=== PATIENT | male | born 1940 | race Caucasian/White ===

== ENCOUNTER 2025-10-11 09:23 | Inpatient (IN) | payer MEDICARE, MEDICAID, SELFPAY ==
[2025-10-11] VITALS (10 sets, daily range): BP systolic 103–167; BP diastolic 80–99; PULSE 69–95; RESP 16–26; TEMP 36.4–37.4; O2SAT 1–95; BMI 23.9; BMI 23.8
--- NOTE | ~2025-10-11 | XR_ITS ---
CLINICAL HISTORY: sob 1 view chest x-ray. Comparison: None Findings: Normal lung volumes. Interstitial thickening. No pneumothorax or pleural effusion. Cardiomegaly.Passive venous congestion. No midline shift or tracheal deviation. No acute fracture. Impression: 1. Cardiomegaly with passive venous congestion and interstitial thickening probable interstitial pulmonary edema versus pneumonitis. This document has been electronically signed by: Yosi Samuel MD on 10/11/2025 10:26:04
--- NOTE | ~2025-10-11 | CT_ITS ---
CLINICAL HISTORY: hypoxia CT angiography chest with contrast. 3D Postprocessing. Comparison: None provided Findings: Borderline heart size. Moderate coronary artery calcifications. Reflux of contrast into the hepatic venous system. Unremarkable thoracic aorta and great vessels. No aneurysm. No pulmonary artery filling defects. Unremarkable visualized thyroid gland. No mediastinal lymphadenopathy. Small hiatal hernia. There is moderate pulmonary emphysema. There is no consolidation or pleural effusion. There is colonic diverticulosis. There is pancreatic volume loss. No acute fractures. IMPRESSION: No evidence of pulmonary artery embolism. This document has been electronically signed by: Renetta Carmona MD on 10/11/2025 15:06:25
--- NOTE | ~2025-10-11 | CT_ITS ---
CLINICAL HISTORY: ams CT of the head without intravenous contrast Comparison: None Findings: The ventricles and sulci are prominent, consistent with generalized cerebral parenchymal volume loss. The ventricles are symmetric and the basilar cisterns are intact. Mild periventricular, deep and subcortical white matter hypodensities are nonspecific but statistically reflect the sequela of chronic small vessel ischemic change. No intracranial hemorrhage, extra-axial fluid collection, midline shift or mass-effect is evident. No evidence of acute large vessel or territorial ischemia. Brainstem and cerebellum unremarkable. Vascular calcifications indicate intracranial atherosclerosis. The imaged portion of the paranasal sinuses are clear. No mastoid effusions are demonstrated. The orbital contents are unremarkable. Calvarium is intact. Impression: 1. No CT evidence of acute intracranial abnormality. 2. Cerebral volume loss, intracranial atherosclerotic disease and mild sequela of chronic small vessel ischemic disease. This document has been electronically signed by: Yosi Samuel MD on 10/11/2025 11:50:26
--- NOTE | ~2025-10-11 | CT_ITS ---
EXAMINATION: CT ABDOMEN PELVIS WITHOUT IV CONTRAST HISTORY: fever COMPARISON: There are no prior studies available for comparison. TECHNIQUE: CT scan of the abdomen and pelvis was performed without contrast using standard departmental protocol. Coronal and sagittal reformatted images were generated and reviewed. Oral contrast material was not administered at the request of the referring physician. This CT exam was performed with one or more of the following dose reduction techniques: automated exposure control, adjustment of the mA and/or kV according to patient size, use of iterative reconstruction technique. DLP: 1158 mGy-cm FINDINGS: The examination is limited by patient motion. LOWER CHEST: There is a 5 mm nodule at the right lung base (series 13, image 6). There is no pleural effusion. CARDIOVASCULATURE: The heart is normal in size. There is no pericardial effusion. LIVER: The liver is normal in size and contour. The liver has an unremarkable unenhanced appearance. GALLBLADDER / BILE DUCTS: The gallbladder is distended and demonstrates layering intraluminal calculi. There is no pericholecystic inflammatory change. There is no intra or extrahepatic biliary ductal dilatation. SPLEEN: The spleen is normal in size and has an unremarkable unenhanced appearance. PANCREAS: The pancreas has an unremarkable unenhanced appearance. ADRENAL GLANDS: Unremarkable. KIDNEYS/RETROPERITONEUM: Evaluation for renal calculi is limited by excreted contrast in the collecting systems from prior chest CTA. There is no hydronephrosis. There are cysts in the interpolar region of the right kidney measuring 1.8 cm, at the lower pole the right kidney measuring 1.6 cm, and at the lower pole of the left kidney measuring 3.2 cm. LYMPH NODES: No retroperitoneal lymphadenopathy is identified in the abdomen or pelvis. VASCULATURE: The abdominal aorta demonstrates atherosclerotic calcification, but is normal in caliber. MESENTERY/PERITONEUM: No free fluid. No masses. There is no free intraperitoneal gas. STOMACH: There is a small hiatal hernia. The remainder the stomach is collapsed. SMALL BOWEL: The small bowel is normal in caliber. COLON: There is extensive diverticulosis of the colon, without evidence of diverticulitis. APPENDIX: The appendix is surgically absent. URINARY BLADDER/PELVIC ORGANS: There is excreted contrast in the urinary bladder. BONES / SOFT TISSUES: No suspicious bony or soft tissue abnormalities. CT/CT abdomen pelvis wo IV con IMPRESSION: 1. Cholelithiasis. 2. Colonic diverticulosis without evidence of diverticulitis. 3. 5 mm nodule at the right lung base. Please see Fleischner Society guidelines below. Fleischner Criteria for pulmonary nodule follow-up SOLID NODULES: Low risk patient: <6mm: no follow-up 6-8mm: 6 month follow-up CT >8mm: PET/Biopsy/ 3 month follow-up CT High risk patient: <6mm: 12 month follow-up CT 6-8mm: 6 month follow-up CT >8mm: PET/Biopsy/ 3 month follow-up CT SUB-SOLID/GROUNDGLASS NODULES: All patients: > or = 6mm: 6 month follow-up CT *Please note that in patients in the following categories, the Fleischner criteria do not apply: Immunocompromised, lung cancer screening population, age below 35, and patients with known malignancy Electronically signed by: Kobi Barlow MD 10/12/2025 08:38 AM CAT
--- NOTE | 2025-10-11 09:26 | ECG_ITS ---
Test Reason : SOB Blood Pressure : */* mmHG Vent. Rate : 99 BPM Atrial Rate : * BPM P-R Int : * ms QRS Dur : 90 ms QT Int : 378 ms P-R-T Axes : * 51 64 degrees QTcB Int : 485 ms Atrial fibrillation with premature ventricular or aberrantly conducted complexes Low voltage QRS Nonspecific T wave abnormality Abnormal ECG No previous ECGs available Referred By: Clarisa Cochran Electronically Signed By: BETSY FLANAGAN
--- NOTE | 2025-10-11 09:35 | ED_ITS ---
HPI - General Adult General Chief complaint: Altered Mental Status Stated complaint: AMS, WEAK,90%, RA, FROM [facility] Time Seen by Provider: 10/11/25 09:26 Source: patient Mode of arrival: ambulatory Limitations: no limitations History of Present Illness ED Provider: ISAI Cochran HPI narrative: Chief Complaint: Fatigue with increased weakness and lethargy (per EMS/nursing report). History of Present Illness: 84-year-old male transferred from [facility] for evaluation of acute change in mental status, described by staff as increased weakness and lethargy over today. Baseline per facility and EMS is ambulatory, talkative, and able to participate in care; today, patient is non-verbal, not answering questions, and only responsive to painful stimuli. No recent medication changes reported by staff. No known recent infections, but patient is at increased risk due to advanced age, dementia, and residence in a long term facility. No history of trauma, seizure, or fever reported by staff. No known environmental exposures. Patient has a history of dementia, hypertension, and other chronic conditions. Very limited history obtainable due to patient?s altered mental status. Family and facility contacted for collateral information; awaiting further details. Related Data Allergies Allergy/AdvReac Type Severity Reaction Status Date / Time naproxen (From ALEVE) Allergy Severe ANAPHYLAXIS Unverified 10/11/25 09:44 Review of Systems 2 Review of Systems: A comprehensive review of systems was attempted but is limited by the patient's altered mental status and inability to provide history. Negative findings per staff and chart review: no witnessed seizure, no trauma, no fever, no chest pain, no palpitations, no shortness of breath, no abdominal pain, no vomiting, no diarrhea, no rash, no new psychiatric symptoms. Positive findings: sore throat, generalized weakness, and lethargy. Yes Unobtainable due to mental status PMFSH Past Medical History Attestation statement: The following information was validated with the patient. Source: old records reviewed and nursing notes reviewed Social History Social History Unable to assess alcohol history related to: Unknown Smoked in Last 30 Days: No Use of substances other than those prescribed or required for medical reasons: Unknown Advance Directives: No Advance Directives Information Provided: Yes Physical Exam ED Exam Exam: * General: Elderly male lying in bed, appears comfortable but markedly lethargic. No acute distress. Vitals reviewed. * Neurological: Non-verbal, does not follow commands, withdraws to painful stimuli only; globally weak. No focal deficits appreciated. Pupils equal and reactive. No nuchal rigidity. * Cardiovascular: Regular rate and rhythm, no murmurs, rubs, or gallops. No peripheral edema. * Respiratory: Breath sounds diminished bilaterally, no rales, wheezes, or rhonchi. No increased work of breathing. * Abdomen: Soft, non-tender, non-distended. Bowel sounds present. * Skin: Warm, dry, intact. No rashes, bruising, or pressure ulcers. * Psychiatric: Unable to assess due to altered mental status. No agitation or combativeness observed. Vital Signs: Vital Signs - 24 hr 10/11/25 09:43 10/11/25 10:38 10/11/25 12:00 Temperature 99.3 F 98.6 F Pulse Rate 89 84 69 Respiratory Rate 26 H 22 H 16 Blood Pressure 123/88 103/85 105/80 Pulse Oximetry 91 L 95 95 Oxygen Delivery Method Room Air Nasal Cannula Nasal Cannula Oxygen Flow Rate 2 2 10/11/25 12:35 10/11/25 12:42 Temperature Pulse Rate Respiratory Rate Blood Pressure Pulse Oximetry 75 L 95 Oxygen Delivery Method Room Air Nasal Cannula Oxygen Flow Rate 3 BMI result Body Mass Index 23.9 Course Reevaluation(s) Reevaluation #1: I tried calling the emergency contact in the chart patient's spouse however number not in service. Time: 09:37 Reevaluation #2: CBC with a normocytic anemia. Chemistry pending. Lactic acid 0.8. Patient's x-ray with cardiomegaly with passive venous congestion and interstitial thickening probable interstitial pulmonary edema versus pneumonitis. Patient's blood pressure stable will proceed with 20 mg of IV Lasix. I did order ceftriaxone for empiric coverage. Will hold on fluids given x-ray findings Time: 10:29 Reevaluation #3: With minimal exertion patient desatted is a 75% on room air. He was put back in the room on nasal cannula and his oxygen is anywhere between 93-95% on 3-4 L Time: 14:56 Additional Reevaluation(s): CTA negative. Howver borderline heart size. Plan hospital admission. Medications Administered Discontinued Medications Generic Name Dose Route Start Last Admin Trade Name Freq PRN Reason Stop Dose Admin Furosemide 20 mg 10/11/25 10:29 10/11/25 11:00 Furosemide 20 Mg/2 Ml Vial IVPUSH 10/11/25 10:30 20 mg ONCE ONE Administration Protocol Ceftriaxone Sodium 1 gm/ 50 mls @ 100 mls/hr 10/11/25 10:25 10/11/25 11:16 Sodium Chloride IV 10/11/25 10:54 Infused ONCE ONE Infusion Iohexol 100 ml 10/11/25 13:04 10/11/25 13:05 Iohexol 350 Mg/Ml 100 Ml Infus..Btl IV 10/11/25 13:05 65 ml ONCE ONE Administration Medical Decision Making Medical Decision Making [facility] Narrative: 0941 84-year-old male with dementia presenting from long term facility with acute altered mental status, weakness, and sore throat. Very limited history; exam notable for responsiveness only to painful stimuli. Patient is at high risk for rapid deterioration due to advanced age, comorbidities, and inability to protect airway. Complexity of medical decision making is high given broad differential, need for comprehensive workup, and risk of serious underlying pathology. Full diagnostic workup initiated to evaluate infectious, metabolic, cardiac, neurologic, toxicologic, medication-related, and environmental etiologies of acute encephalopathy. Problem #1: Altered mental status / acute encephalopathy Assessment: Significant deviation from baseline dementia; non-verbal, responds only to pain. Differential diagnosis includes: * Infectious: pneumonia, urinary tract infection, sepsis, viral illness * Metabolic: electrolyte disturbance, renal/hepatic dysfunction, hypoglycemia * Cardiac: arrhythmia, myocardial infarction, heart failure * Neurologic: stroke, intracranial hemorrhage, seizure, acute dementia exacerbation * Toxicologic: medication side effect, overdose, environmental toxin * Other: dehydration, hypoxia, environmental exposures * Patient is at risk for rapid deterioration, aspiration, and falls. Justification for comprehensive workup and close monitoring is based on high risk of morbidity and mortality in this population. Plan: * Obtain CBC, CMP, magnesium, NT-proBNP, troponin (evaluate for infection, metabolic derangement, cardiac injury) * EKG for cardiac evaluation (arrhythmia, ischemia) * Viral respiratory panel (rule out viral infection) * Urinalysis with culture (rule out UTI/sepsis) * Chest X-ray (rule out pneumonia, heart failure) * Non-contrast head CT to rule out intracranial pathology (stroke, hemorrhage) * Monitor vitals and neuro status closely; frequent reassessment * Initiate fall precautions and aspiration precautions * Communicate with facility and family for collateral history and updates * Address abnormalities as results return; escalate care as needed Problem #2: Chronic dementia (baseline) Assessment: Known history per facility; baseline typically ambulatory and talkative. Deviation from baseline noted. Plan: * Document baseline status for comparison * Continue supportive care and monitor for return to baseline Sepsis alert called overhead Differential Diagnosis Differential Diagnoses: The differential diagnosis associated with the presentation includes * Infectious: Pneumonia, urinary tract infection, sepsis, viral illness. Consider aspiration pneumonia due to decreased responsiveness and inability to protect airway. Relevant given advanced age, residence in long term facility, and increased risk of infection. * Metabolic: Electrolyte disturbance, renal or hepatic dysfunction, hypoglycemia, hyperglycemia. Elderly patients with comorbidities and limited history are at increased risk for metabolic derangements. * Cardiac: Arrhythmia, myocardial infarction, heart failure. Cardiac events can present as acute encephalopathy, especially in older adults with underlying cardiovascular disease. * Neurologic: Stroke, intracranial hemorrhage, seizure, acute exacerbation of dementia. Sudden neurologic events are a common cause of acute mental status changes in this population. * Toxicologic: Medication side effect, overdose, environmental toxin. Polypharmacy and potential for medication errors or adverse effects are relevant in nursing facility residents. * Other: Dehydration, hypoxia, environmental exposures, pain, acute delirium from underlying medical illness. These factors can precipitate or worsen encephalopathy, especially in patients with dementia and limited ability to communicate. Admission/Observation Consideration of admission/observation: Escalation of care including admission/observation considered (likely ) Lab Data MDM Lab Attestation statement: I reviewed the patient's lab results. 10/11/25 09:55 10/11/25 09:55 Labs: Lab Results 10/11/25 10/11/25 Range/Units 09:55 10:15 WBC 10.5 (4.8-10.8) X10*3/uL RBC 4.99 (4.60-5.80) X10*6/uL Hgb 12.4 L (14.0-18.0) g/dl Hct 39.9 L (42.0-52.0) % MCV 80.0 (80.0-98.0) fL MCH 24.8 L (27.0-33.0) pg MCHC 31.1 (31.0-36.0) g/dl RDW 15.9 (11.0-16.0) % Plt Count 335 (160-400) X10*3/uL MPV 10.5 (9.4-12.4) fL Immature Gran % (Auto) 0.3 (0.0-0.4) % Neut % (Auto) 76.5 H (45-73) % Lymph % (Auto) 11.6 L (20-40) % [place] % (Auto) 8.1 (2-11) % Eos % (Auto) 2.6 (0-4) % Baso % (Auto) 0.9 (0-2) % Lymph # (Auto) 1.2 (1.2-4.9) X10*3/uL [place] # (Auto) 0.9 (0.1-1.2) X10*3/uL Eos # (Auto) 0.3 (0.0-0.4) X10*3/uL Baso # (Auto) 0.1 (0.0-0.2) X10*3/uL Abs Immat Gran (auto) 0.03 (0.00-0.03) X10*3/uL Absolute Neuts (auto) 8.0 (2.0-8.3) x10*3/uL Absolute Nucleated RBC 0.000 (0.0-0.012) X10*3/uL Nucleated RBC % (auto) 0.0 (0.0-0.2) /100WBC PT 12.8 (11.2-13.5) SEC INR 1.0 (0.9-1.1) Sodium 140 (135-145) mmol/L Potassium 4.3 (3.3-5.1) mmol/L Chloride 109 H (96-108) mmol/L Carbon Dioxide 22 (22-29) mmol/L Anion Gap 13 (12-20) BUN 14 (9-16) mg/dL Creatinine 0.93 (0.5-1.4) mg/dL Estim Creat Clear Calc 61.2 Estimated GFR > 60 Random Glucose 102 (60-115) mg/dL Lactic Acid 0.8 (0.5-2.0) mmol/L Calcium 8.8 (8.4-10.2) mg/dL Magnesium 2.2 (1.6-2.6) mg/dL Total Bilirubin 0.5 (0.0-1.0) mg/dL AST 31 (5-37) U/L ALT < 6 (0-40) U/L Alkaline Phosphatase 90 (39-117) U/L Troponin I High Sens 6.6 (<3.5-35.0) ng/L NT-Pro-B Natriuret Pep 571.1 H (<300) pg/mL Total Protein 7.0 (6.5-8.0) g/dL Albumin 4.3 (3.5-5.0) g/dL Urine Color Yellow Urine Appearance Clear Urine pH 6.5 (5.0-9.0) Ur Specific [place] 1.015 (1.005-1.025) Urine Protein Negative (Neg-Trace) mg/dL Urine Glucose (UA) Negative (Negative) mg/dL Urine Ketones Negative (Negative) mg/dL Urine Blood Negative (Negative) Urine Nitrite Negative (Negative) Ur Leukocyte Esterase Negative (Negative) Influenza Type A (PCR) NEGATIVE (Negative) Influenza Type B (PCR) NEGATIVE (Negative) RSV RNA Qual (PCR) NEGATIVE (Negative) SARS-CoV-2 RNA (RT-PCR) NEGATIVE (Negative) Critical Care Time Critical Care Time Critical Care Time: Yes Total Critical Care Time: 35 Attestation: . I attest to this time spent taking care of the patient, obtaining history, physical, reviewing labs, imaging, treatment of patients condition +/- specialist/hospitalist consult +/- procedure Discharge Plan Discharge Clinical Impression: Altered mental status, Hypoxia Patient Disposition: Admitted As Inpatient Print Language: [place]orese
[2025-10-11 10:02] LABS: MANUAL DIFF FLAG NO
[2025-10-11 10:04] LABS: Hematocrit 39.9 % (42.0-52.0); Hemoglobin 12.4 g/dl (14.0-18.0); Imm Gran Abs Auto 0.03 X10*3/uL (0.00-0.03); Imm Gran Pct Auto 0.3 % (0.0-0.4); Lymphocytes Absolute Auto 1.2 X10*3/uL (1.2-4.9); Mean Corpuscular HGB Conc 31.1 g/dl (31.0-36.0); Mean Corpuscular Hemoglobin 24.8 pg (27.0-33.0); Mean Corpuscular Volume 80.0 fL (80.0-98.0); NRBC Abs Auto 0.000 X10*3/uL (0.0-0.012); NRBC Pct Auto 0.0 /100WBC (0.0-0.2); Platelet Count 335 X10*3/uL (160-400); Red Blood Count 4.99 X10*6/uL (4.60-5.80); White Blood Count 10.5 X10*3/uL (4.8-10.8)
--- NOTE | 2025-10-11 10:04 | PC.NURSE ---
1st set blood cultures sent to lab
[2025-10-11 10:13] LABS: INTERNATIONAL NORM RATIO 1.0 (0.9-1.1); Prothrombin Time 12.8 SEC (11.2-13.5)
--- NOTE | 2025-10-11 10:22 | PC.NURSE ---
Straight cath urine collected using aseptic technique
[2025-10-11 10:28] LABS: Alanine Aminotransferase < 6 U/L (0-40); Albumin Level 4.3 g/dL (3.5-5.0); Alkaline Phosphatase 90 U/L (39-117); Anion Gap 13 (12-20); Aspartate Amino Transferase 31 U/L (5-37); Blood Urea Nitrogen 14 mg/dL (9-16); Calcium 8.8 mg/dL (8.4-10.2); Carbon Dioxide 22 mmol/L (22-29); Chloride 109 mmol/L (96-108); Creatinine Clr Calc Pharmacy 61.2; Estimated Glomerular Filt Rate > 60; Magnesium 2.2 mg/dL (1.6-2.6); Potassium 4.3 mmol/L (3.3-5.1); Sodium 140 mmol/L (135-145); Total Protein 7.0 g/dL (6.5-8.0)
[2025-10-11 10:29] LABS: NT Pro B Type Natriuretic Pept 571.1 pg/mL (<300); Troponin-I High Sensitivity 6.6 ng/L (<3.5-35.0)
[2025-10-11 10:31] LABS: Appearance Urine Clear; Glucose Urine UA Negative (Negative); PH 6.5 (5.0-9.0); Specific Gravity - Urine 1.015 (1.005-1.025)
--- OUTSIDE RECORDS SUMMARY | 2025-10-11 10:54 | XMS_ITS | Encounter Summary ---
Author Organization [facility] Address [address] [place] [address] Phone Care Team Providers Care Ammonia Refrigeration Technician Name Role Phone Pool Perez STUDENT ASSISTANT Primary Care Provider [phone] Encounter Details Date Type Department Care Team (Late st Contact Info) Description 06/03/2022 Procedure Pass [facility], Ct Scan [address] [address] Social History Tobacco Use Types Packs/Day Years Used Date Smoking Tobacco: Former Cigarettes Q uit: 2002 Smokeless Tobacco: Never Alcohol Use Standard Drinks/Week Comments No 0 (1 standard drink = 0.6 oz pur e alcohol) Sex and Gender Information Value Date Recorded Sex Assigned at Male 12/22/2017 1:30 PM EST Legal Sex Male 10:11 PM EDT Gender Identity Male 12/22/2017 1:30 PM EST Sexual Orientation Straight 12/22/2017 1: 30 PM EST 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 It is not the complete legal health record.[facility]
--- OUTSIDE RECORDS SUMMARY | 2025-10-11 10:54 | XMS_ITS | Encounter Summary ---
Author Organization [facility] Address [address] [place] [address] Phone Care Team Providers Care Trimmer Press Clippings Name Role Phone Pool Perez WATCH DIAL PRINTER Primary Care Provider [phone] Encounter Details Date Type Department Care Team (Late st Contact Info) Description 06/30/2020 Procedure Pass [facility] Admitting Dept Virtual Department [address] [place] [address] Social History Tobacco Use Types Packs/Day Years [...] Orientation Straight 12/22/2017 1: 30 PM EST documented as of this encounter Plan of Treatment Not on file documented as of this encounter Visit Diagnoses Not on filedocumented in this encounter Care Teams Trimmer Press Clippings Relationship Specialty Start Date End Date Pool Perez NP [address] [place] [address] PCP - General 04/06/20 documented as of this encounter Additional Source Comments The information contained in this document represents components of the legal health record. It is not the complete legal health record.[facility]
--- OUTSIDE RECORDS SUMMARY | 2025-10-11 10:54 | XMS_ITS | Encounter Summary ---
Author Organization [facility] Address [address] [place] [address] Phone Care Team Providers Care Stem Dryer Maintainer Name Role Phone Luke Gaitan Primary Care Provider [phone] Daija Banegas MD Primary Care Provider [phone] Pool Perez NP Primary Care Provider [phone] Encounter Details Date Type Department Care Team (Late st Contact Info) Description 05/25/2018 Procedure Pass [facility]oscopy Admitting Dept Virtual Department [address] [place] [address] Social History Tobacco Use Types Packs/Day Years [...] Diagnoses Not on filedocumented in this encounter Additional Health Concerns Infection Onset Date Last Indicated Resolved Time CoV-Risk 04/10/2020 04/10/2020 04/24/2020 1:24 AM EDT documented as of this encounter Care Teams Stem Dryer Maintainer Relationship Specialty Start Date End Date Luke Gaitan [facility] [place] [address] PCP - General 02/09/18 03/14/19 Daija Banegas MD [address] [place] [address] [email or web address] PCP - General Family Medicine 03/15/19 09/24/19 Pool Perez NP [address] [place] [address] PCP - General 04/06/20 documented as of this encounter Additional Source Comments The information contained in this document represents components of the legal health record. It is not the complete legal health record.[facility]
--- OUTSIDE RECORDS SUMMARY | 2025-10-11 10:54 | XMS_ITS | Encounter Summary ---
Author Organization [facility] Address [address] [place] [address] Care Team Providers Care Clearing Distribution Clerk Name Role Phone Aristeo Rolle MD Primary Care Provider [phone] Encounter Details Date Type Department Care Team (Latest Contact Info) Description 01/07/2025 Lab Requisition [facility] - Main Lab [address] [place] [address] Aristeo Rolle MD [address] [place], [place] [id number] Noninfective gastroenteritis and colitis, unspecified; Elevated white blood cell count, unspecified Social History Tobacco Use Types Packs/Day Years Used Date Smoking Tobacco: Never Assessed Sex and Gender Information Value Date Recorded Sex Assigned at Not on file Legal Sex Male 6:23 AM EST Gender Identity Not on file Sexual Orientation Not on file documented as of this encounter Plan of Treatment Not on file documented as of this encounter Procedures Procedure Name Priority Date/Time Associated Diagnosis Comments COMPLETE BLOOD COUNT Routine 01/07/2025 5:50 AM EDT Noninfective gastroenteritis and colitis, unspecified Elevated white blood cell count, unspecified BASIC METABOLIC PANEL Routine 01/07/2025 5:50 AM EDT Noninfective gastroenteritis and colitis, unspecified Elevated white blood cell count, unspecified documented in this encounter Results * Basic metabolic panel (01/07/2025 5:50 AM EDT) Sodium 139 133 - 145 mmol/L LAB CHEMISTRY METHOD 01/07/2025 10:34 AM EDT [facility] Potassium 4.1 3.5 - 5.5 mmol/L LAB CHEMISTRY METHOD 01/07/2025 10:34 AM [facility] Chloride 107 96 - 110 mmol/L LAB CHEMISTRY METHOD 01/07/2025 10:34 AM [facility] CO2 25 21 - 32 mmol/L LAB CHEMISTRY METHOD 01/07/2025 10:34 AM [facility] Anion Gap 7 3 - 11 LAB CHEMISTRY METHOD 01/07/2025 10:34 AM [facility] Glucose 92 70 - 100 mg/dL LAB CHEMISTRY METHOD 01/07/2025 10:34 AM [facility] BUN 17 5 - 25 mg/dL LAB CHEMISTRY METHOD 01/07/2025 10:34 AM [facility] Creatinine 0.89 0.70 - 1.30 mg/dL LAB CHEMISTRY METHOD 01/07/2025 10:34 AM [facility] eGFR 86 >=60 mL/min/1. 73m2 LAB CHEMISTRY METHOD 01/07/2025 10:34 AM [facility] Comment:Calculation based on the Chronic Kidney Disease Epidemiology Collaboration (CKD-EPI) equation refit without adjustment for race. BUN/Creatinine Ratio 19.1 LAB CHEMISTRY METHOD 01/07/2025 10:34 AM [facility] Calcium 8.8 8.5 - 10.5 mg/dL LAB CHEMISTRY METHOD 01/07/2025 10:34 AM [facility] Blood Venous blood specimen / Unknown Venipuncture / Unknown 01/07/2025 5:50 AM EDT 01/07/2025 9:12 AM EDT us Aristeo Rolle MD LAB BLOOD ORDERABLES Final Resul t [facility] [address] [place] [address], * (ABNORMAL) Complete blood count (01/07/2025 5:50 AM EDT) [facility] WBC 8.5 4.8 - 10.8 K/mcL LAB HEMETOLOGY METHOD 01/07/2025 10:27 AM [facility] RBC 5.70(H) 4.50 - 5.50 M/mcL LAB HEMETOLOGY METHOD 01/07/2025 10:27 AM [facility] Hemoglobin 13.6 13.5 - 17.5 g/dL LAB HEMETOLOGY METHOD 01/07/2025 10:27 AM [facility] Hematocrit 44.8 42.0 - 54.0 % LAB HEMETOLOGY METHOD 01/07/2025 10:27 AM [facility] MCV 79.2 79.0 - 98.0 FL LAB HEMETOLOGY METHOD 01/07/2025 10:27 AM [facility] MCH 24.0(L) 27.0 - 32.0 pcg LAB HEMETOLOGY METHOD 01/07/2025 10:27 AM [facility] MCHC 30.4(L) 32.0 - 37.0 g/dL LAB HEMETOLOGY METHOD 01/07/2025 10:27 AM [facility] RDW 18.6(H) 11.0 - 15.0 % LAB HEMETOLOGY METHOD 01/07/2025 10:27 AM [facility] Platelets 300 130 - 400 K/mcL LAB HEMETOLOGY METHOD 01/07/2025 10:27 AM [facility] MPV 11.7(H) 7.0 - 11.0 FL LAB HEMETOLOGY METHOD 01/07/2025 10:27 AM [facility] NRBC 0.0 <1.0 % LAB HEMETOLOGY METHOD 01/07/2025 10:27 AM [facility] NRBC Absolute 0.00 <0.10 K/mcL LAB HEMETOLOGY METHOD 01/07/2025 10:27 AM EDT [facility] Blood Venous blood specimen / Unknown Venipuncture / Unknown 01/07/2025 5:50 AM EDT 01/07/2025 9:12 AM EDT Aristeo Rolle MD LAB BLOOD ORDERABLES Final Resul t [facility] [address] [place] [address], documented in this encounter Visit Diagnoses Diagnosis Noninfective gastroenteritis and colitis, unspecified Elevated white blood cell count, unspecified documented in this encounter Care Teams Clearing Distribution Clerk Relationship Specialty Start Date End Date Aristeo Rolle MD [address] [place] [address] [address] [place] [address] PCP - General Geriatric Medicine 11/11/24 documented as of this encounter
--- OUTSIDE RECORDS SUMMARY | 2025-10-11 10:54 | XMS_ITS | Encounter Summary ---
Author Organization [facility] Address [address] [place] [address] Phone Care Team Providers Care Electronic News Gathering Camera Person Name Role Phone Luke Gaitan Primary Care Provider [phone] Daija Banegas MD Primary Care Provider [phone] Pool Perez NP Primary Care Provider [phone] Encounter Details Date Type Department Care Team (Late st Contact Info) Description 08/07/2018 Procedure Pass [facility], Ct Scan - [address] [address] Social History Tobacco Use Types Packs/Day Years [...] documented as of this encounter Care Teams Electronic News Gathering Camera Person Relationship Specialty Start Date End Date Luke Gaitan [address] [facility] [place] [address] PCP - General 02/09/18 03/14/19 Daija Banegas MD [address] [place] [address] [email or web address] PCP - General Family Medicine 03/15/19 09/24/19 Pool Perez NP [address] [place] [address] PCP - General 04/06/20 documented as of this encounter Additional Source Comments The information contained in this document represents components of the legal health record. It is not the complete legal health record.[facility]
--- OUTSIDE RECORDS SUMMARY | 2025-10-11 10:54 | XMS_ITS | Encounter Summary ---
Author Organization [facility] Address [address] [place] [address] Phone Care Team Providers Care Spring Setter Name Role Phone Pool Perez FUELS ENGINEER Primary Care Provider [phone] Encounter Details Date Type Department Care Team (Late st Contact Info) Description 10/21/2020 Procedure Pass [facility], Ct Scan - [address] [address] Social History Tobacco Use Types Packs/Day Years [...] on filedocumented in this encounter Care Teams Spring Setter Relationship Specialty Start Date End Date Pool Perez NP [address] [place] [address] PCP - General 04/06/20 documented as of this encounter Additional Source Comments The information contained in this document represents components of the legal health record. It is not the complete legal health record.[facility]
--- OUTSIDE RECORDS SUMMARY | 2025-10-11 10:54 | XMS_ITS | Encounter Summary ---
Author Organization [facility] Address [address] [place] [address] Care Team Providers Care Payment Analyst Name Role Phone Aristeo Rolle MD Primary Care Provider [phone] Encounter Details Date Type Department Care Team (Latest Contact Info) Description 11/29/2024 Lab Requisition [facility] - Main Lab [address] [facility] [place] [address] Shai Tan MD [address] [place] [id number] Hyperlipidemia, unspecified; Vascular dementia, unspecified severity, without behavioral disturbance, psychotic disturbance, mood disturbance, and anxiety (CMS/HCC V24, CMS/HCC V28); Type 2 diabetes mellitus without complications (CMS/HCC V24, CMS/HCC V28) Social History Tobacco Use Types Packs/Day Years [...] Procedure Name Priority Date/Time Associated Diagnosis Comments LIPID PANEL WITH REFLEX TO DIRECT LDL Routine 12/01/2024 6:40 AM EST Hyperlipidemia, unspecified Vascular dementia, unspecified severity, without behavioral disturbance, psychotic disturbance, mood disturbance, and anxiety (CMS/HCC) Type 2 diabetes mellitus without complications (CMS/HCC) COMPLETE BLOOD COUNT Routine 12/01/2024 6:40 AM EST Hyperlipidemia, unspecified Vascular dementia, unspecified severity, without behavioral disturbance, psychotic disturbance, mood disturbance, and anxiety (CMS/HCC) Type 2 diabetes mellitus without complications (CMS/HCC) THYROID STIMULATING HORMONE Routine 12/01/2024 6:40 AM EST Hyperlipidemia, unspecified Vascular dementia, unspecified severity, without behavioral disturbance, psychotic disturbance, mood disturbance, and anxiety (CMS/HCC) Type 2 diabetes mellitus without complications (CMS/HCC) HEMOGLOBIN A1C Routine 12/01/2024 6:40 AM EST Hyperlipidemia, unspecified Vascular dementia, unspecified severity, without behavioral disturbance, psychotic disturbance, mood disturbance, and anxiety (CMS/HCC) Type 2 diabetes mellitus without complications (CMS/HCC) COMPREHENSIVE METABOLIC PANEL Routine 12/01/2024 6:40 AM EST Hyperlipidemia, unspecified Vascular dementia, unspecified severity, without behavioral disturbance, psychotic disturbance, mood disturbance, and anxiety (CMS/HCC) Type 2 diabetes mellitus without complications (CMS/HCC) documented in this encounter Results * Hemoglobin A1c (12/01/2024 6:40 AM EST) Hemoglobin A1C 6.4 <6.5 % LAB CHEMISTRY METHOD 12/01/2024 2:28 PM EST [facility] Mean Bld Glu Estim. 137 mg/dL LAB CHEMISTRY METHOD 12/01/2024 2:28 PM EST [facility] Blood Venous blood specimen / Unknown Venipuncture / Unknown 12/01/2024 6:40 AM EST 12/01/2024 10:52 AM EST us Shai Tan MD LAB BLOOD ORDERABLES Final Res ult [facility] [address] [place] [address], * Thyroid stimulating hormone (12/01/2024 6:40 AM EST) TSH 3.98 0.40 - 4.00 mcIU/mL LAB CHEMISTRY METHOD 12/01/2024 11:57 AM EST [facility] Blood Venous blood specimen / Unknown Venipuncture / Unknown 12/01/2024 6:40 AM EST 12/01/2024 10:52 AM EST us Shai Tan MD LAB BLOOD ORDERABLES Final Res ult [facility] [address] [place] [address], [place] [phone] * (ABNORMAL) Lipid panel with reflex to direct LDL (12/01/2024 6:40 AM EST) Cholesterol 108 0 - 200 mg/dL LAB CHEMISTRY METHOD 12/01/2024 11:50 AM EST [facility] Triglycerides 68 0 - 150 mg/dL LAB CHEMISTRY METHOD 12/01/2024 11:50 AM [facility] HDL 34(L) >=40 mg/dL LAB CHEMISTRY METHOD 12/01/2024 11:50 AM EST [facility] LDL Calculated 60 0 - 100 mg/dL LAB CHEMISTRY METHOD 12/01/2024 11:50 AM EST [facility] VLDL Cholesterol Mukund 13.6 mg/dL LAB CHEMISTRY METHOD 12/01/2024 11:50 AM EST [facility] Non HDL Chol. (LDL+VLDL) 74 <145 mg/dL LAB CHEMISTRY METHOD 12/01/2024 11:50 AM [facility] Chol/HDL Ratio 3.2 0.0 - 4.4 LAB CHEMISTRY METHOD 12/01/2024 11:50 AM [facility] Blood Venous blood specimen / Unknown Venipuncture / Unknown 12/01/2024 6:40 AM EST 12/01/2024 10:52 AM EST us Shai Tan MD LAB BLOOD ORDERABLES Final Res ult [facility] [address] [place] [address], [place] [phone] * (ABNORMAL) Comprehensive metabolic panel (12/01/2024 6:40 AM EST) [facility] Signature Sodium 138 133 - 145 mmol/L LAB CHEMISTRY METHOD 12/01/2024 11:50 AM [facility] Potassium 3.6 3.5 - 5.5 mmol/L LAB CHEMISTRY METHOD 12/01/2024 11:50 AM [facility] Chloride 106 96 - 110 mmol/L LAB CHEMISTRY METHOD 12/01/2024 11:50 AM [facility] CO2 26 21 - 32 mmol/L LAB CHEMISTRY METHOD 12/01/2024 11:50 AM [facility] Anion Gap 6 3 - 11 LAB CHEMISTRY METHOD 12/01/2024 11:50 AM [facility] Glucose 86 70 - 100 mg/dL LAB CHEMISTRY METHOD 12/01/2024 11:50 AM [facility] BUN 16 5 - 25 mg/dL LAB CHEMISTRY METHOD 12/01/2024 11:50 AM [facility] Creatinine 1.02 0.70 - 1.30 mg/dL LAB CHEMISTRY METHOD 12/01/2024 11:50 AM [facility] eGFR 74 >=60 mL/min/1. 73m2 LAB CHEMISTRY METHOD 12/01/2024 11:50 AM [facility] Comment:Calculation based on the Chronic Kidney Disease Epidemiology Collaboration (CKD-EPI) equation refit without adjustment for race. BUN/Creatinine Ratio 15.7 LAB CHEMISTRY METHOD 12/01/2024 11:50 AM [facility] Calcium 8.6 8.5 - 10.5 mg/dL LAB CHEMISTRY METHOD 12/01/2024 11:50 AM [facility] AST (SGOT) 7(L) 10 - 42 unit/L LAB CHEMISTRY METHOD 12/01/2024 11:50 AM [facility] ALT (SGPT) 8(L) 10 - 60 unit/L LAB CHEMISTRY METHOD 12/01/2024 11:50 AM [facility] Alkaline Phosphatase 90 42 - 121 unit/L LAB CHEMISTRY METHOD 12/01/2024 11:50 AM [facility] Total Protein 6.5 6.0 - 8.0 g/dL LAB CHEMISTRY METHOD 12/01/2024 11:50 AM EST [facility] Albumin 3.5 3.2 - 5.0 g/dL LAB CHEMISTRY METHOD 12/01/2024 11:50 AM [facility] Total Bilirubin 0.7 0.0 - 1.4 mg/dL LAB CHEMISTRY METHOD 12/01/2024 11:50 AM [facility] Blood Venous blood specimen / Unknown Venipuncture / Unknown 12/01/2024 6:40 AM EST 12/01/2024 10:52 AM EST us Shai Tan MD LAB BLOOD ORDERABLES Final Res ult [facility] [address] [place] [address], * (ABNORMAL) Complete blood count (12/01/2024 6:40 AM EST) WBC 14.4(H) 4.8 - 10.8 K/mcL LAB HEMETOLOGY METHOD 12/01/2024 11:15 AM [facility] RBC 5.20 4.50 - 5.50 M/[facility] LAB HEMETOLOGY METHOD 12/01/2024 11:15 AM [facility] Hemoglobin 12.6(L) 13.5 - 17.5 g/dL LAB HEMETOLOGY METHOD 12/01/2024 11:15 AM [facility] Hematocrit 41.2(L) 42.0 - 54.0 % LAB HEMETOLOGY METHOD 12/01/2024 11:15 AM [facility] MCV 79.1 79.0 - 98.0 FL LAB HEMETOLOGY METHOD 12/01/2024 11:15 AM EST [facility] MCH 24.2(L) 27.0 - 32.0 pcg LAB HEMETOLOGY METHOD 12/01/2024 11:15 AM [facility] MCHC 30.6(L) 32.0 - 37.0 g/dL LAB HEMETOLOGY METHOD 12/01/2024 11:15 AM EST [facility] RDW 18.6(H) 11.0 - 15.0 % LAB HEMETOLOGY METHOD 12/01/2024 11:15 AM EST [facility] Platelets 305 130 - 400 K/mcL LAB HEMETOLOGY METHOD 12/01/2024 11:15 AM [facility] MPV 12.2(H) 7.0 - 11.0 FL LAB HEMETOLOGY METHOD 12/01/2024 11:15 AM EST [facility] NRBC 0.0 <1.0 % LAB HEMETOLOGY METHOD 12/01/2024 11:15 AM EST [facility] NRBC Absolute 0.00 <0.10 K/mcL LAB HEMETOLOGY METHOD 12/01/2024 11:15 AM [facility] Blood Venous blood specimen / Unknown Venipuncture / Unknown 12/01/2024 6:40 AM EST 12/01/2024 10:52 AM EST us Shai Tan MD LAB BLOOD ORDERABLES Final Res ult [facility] [address] [place] [address], documented in this encounter Visit Diagnoses Diagnosis Hyperlipidemia, unspecified Vascular dementia, unspecified severity, without behavioral disturbance, psychotic disturbance, mood disturbance, and anxiety (CMS/HCC V24, CMS/HCC V28) Type 2 diabetes mellitus without complications ([facility]/HCC V24, [facility] V28) documented in this encounter Additional Health Concerns Infection Onset Date Last Indicated Resolved Time Influenza 11/10/2024 11/10/2024 12/04/2024 7:07 PM EST documented as of this encounter Care Teams Payment Analyst Relationship Specialty Start Date End Date Aristeo Rolle MD [address] [facility] [address] [place] [address] PCP - General Geriatric Medicine 11/11/24 documented as of this encounter
--- OUTSIDE RECORDS SUMMARY | 2025-10-11 10:54 | XMS_ITS | Encounter Summary ---
Author Organization [facility] Address [address] [place] [address] Care Team Providers Care Operating Systems Specialist Name Role Phone Aristeo Rolle MD Primary Care Provider [phone] Encounter Details Date Type Department Care Team (Late st Contact Info) Description 11/11/2024 Lab Requisition [facility] - Main Lab [address] [facility] [place] [address] Aristeo Rolle MD [address] [place], [place] [id number] Unspecified atrial fibrillation (CMS/HCC V24, CMS/HCC V28) Social History Tobacco [...] Procedure Name Priority Date/Time Associated Diagnosis Comments CBC WITH AUTO DIFFERENTIAL Routine 11/11/2024 6:00 AM EST Unspecified atrial fibrillation (CMS/HCC) CBC AND DIFFERENTIAL Routine 11/11/2024 6:00 AM EST Unspecified atrial fibrillation (CMS/HCC) BASIC METABOLIC PANEL Routine 11/11/2024 6:00 AM EST Unspecified atrial fibrillation (CMS/HCC) documented in this encounter Results * (ABNORMAL) CBC auto differential (11/11/2024 6:00 AM EST) WBC 7.9 4.8 - 10.8 /[facility] LAB HEMETOLOGY METHOD 11/11/2024 9:13 AM [facility] RBC 5.60(H) 4.50 - 5.50 M/mcL LAB HEMETOLOGY METHOD 11/11/2024 9:13 AM [facility] Hemoglobin 13.1(L) 13.5 - 17.5 g/dL LAB HEMETOLOGY METHOD 11/11/2024 9:13 AM [facility] LAB Hematocrit 42.9 42.0 - 54.0 % LAB HEMETOLOGY METHOD 11/11/2024 9:13 AM [facility] LAB MCV 76.9(L) 79.0 - 98.0 FL LAB HEMETOLOGY METHOD 11/11/2024 9:13 AM [facility] MCH 23.5(L) 27.0 - 32.0 pcg LAB HEMETOLOGY METHOD 11/11/2024 9:13 AM [facility] LAB MCHC 30.5(L) 32.0 - 37.0 g/dL LAB HEMETOLOGY METHOD 11/11/2024 9:13 AM [facility] LAB RDW 17.2(H) 11.0 - 15.0 % LAB HEMETOLOGY METHOD 11/11/2024 9:13 AM [facility] LAB Platelets 357 130 - 400 K/mcL LAB HEMETOLOGY METHOD 11/11/2024 9:13 AM [facility] LAB MPV 11.0 7.0 - 11.0 FL LAB HEMETOLOGY METHOD 11/11/2024 9:13 AM [facility] LAB NRBC 0.0 <1.0 % LAB HEMETOLOGY METHOD 11/11/2024 9:13 AM [facility] LAB NRBC Absolute 0.00 <0.10 K/mcL LAB HEMETOLOGY METHOD 11/11/2024 9:13 AM [facility] Neutrophils Relative 66.7 % LAB HEMETOLOGY METHOD 11/11/2024 9:13 AM [facility] Lymphocytes Relative 15.5 % LAB HEMETOLOGY METHOD 11/11/2024 9:13 AM [facility] Monocytes Relative 13.0 % LAB HEMETOLOGY METHOD 11/11/2024 9:13 AM [facility] Eosinophils Relative 3.8 % LAB HEMETOLOGY METHOD 11/11/2024 9:13 AM [facility] Basophils Relative 0.5 % LAB HEMETOLOGY METHOD 11/11/2024 9:13 AM [facility] Immature Granulocytes Relative 0.5 % LAB HEMETOLOGY METHOD 11/11/2024 9:13 AM [facility] Neutrophils Absolute 5.27 1.50 - 7.00 K/mcL LAB HEMETOLOGY METHOD 11/11/2024 9:13 AM [facility] Lymphocytes Absolute 1.23 1.00 - 5.00 K/mcL LAB HEMETOLOGY METHOD 11/11/2024 9:13 AM [facility] Monocytes Absolute 1.03(H) 0.20 - 1.00 K/mcL LAB HEMETOLOGY METHOD 11/11/2024 9:13 AM [facility] Eosinophils Absolute 0.30 0.00 - 0.50 K/mcL LAB HEMETOLOGY METHOD 11/11/2024 9:13 AM [facility] Basophils Absolute 0.04 0.00 - 0.20 K/mcL LAB HEMETOLOGY METHOD 11/11/2024 9:13 AM [facility] Immature Granulocytes Absolute 0.04(H) 0.00 - 0.03 K/mcL LAB HEMETOLOGY METHOD 11/11/2024 9:13 AM [facility] Blood Venous blood specimen / Unknown Venipuncture / Unknown 11/11/2024 6:00 AM EST 11/11/2024 8:48 AM EST us Aristeo Rolle MD LAB BLOOD ORDERABLES Final Resul t [facility] [address] [place] [address], * Basic metabolic panel (11/11/2024 6:00 AM EST) Sodium 141 133 - 145 mmol/L LAB CHEMISTRY METHOD 11/11/2024 10:13 AM [facility] Potassium 5.2 3.5 - 5.5 mmol/L LAB CHEMISTRY METHOD 11/11/2024 10:13 AM [facility] Chloride 107 96 - 110 mmol/L LAB CHEMISTRY METHOD 11/11/2024 10:13 AM [facility] CO2 30 21 - 32 mmol/L LAB CHEMISTRY METHOD 11/11/2024 10:13 AM [facility] Anion Gap 4 3 - 11 LAB CHEMISTRY METHOD 11/11/2024 10:13 AM [facility] Glucose 93 70 - 100 mg/dL LAB CHEMISTRY METHOD 11/11/2024 10:13 AM [facility] BUN 14 5 - 25 mg/dL LAB CHEMISTRY METHOD 11/11/2024 10:13 AM [facility] Creatinine 1.08 0.70 - 1.30 mg/dL LAB CHEMISTRY METHOD 11/11/2024 10:13 AM [facility] LAB eGFR 69 >=60 mL/min/1. 73m2 LAB CHEMISTRY METHOD 11/11/2024 10:13 AM [facility] LAB Comment:Calculation based on the Chronic Kidney Disease Epidemiology Collaboration (CKD-EPI) equation refit without adjustment for race. BUN/Creatinine Ratio 13.0 LAB CHEMISTRY METHOD 11/11/2024 10:13 AM [facility] Calcium 8.9 8.5 - 10.5 mg/dL LAB CHEMISTRY METHOD 11/11/2024 10:13 AM EST [facility] Blood Venous blood specimen / Unknown Venipuncture / Unknown 11/11/2024 6:00 AM EST 11/11/2024 8:48 AM EST Aristeo Rolle MD LAB BLOOD ORDERABLES Final Resul t [facility] [address] [place] [address], documented in this encounter Visit Diagnoses Diagnosis Unspecified atrial fibrillation (CMS/HCC V24, CMS/HCC V28) documented in this encounter Additional Health Concerns Infection Onset Date Last Indicated Resolved Time Influenza 11/10/2024 11/10/2024 12/04/2024 7:07 PM EST Respiratory Rule-Out 11/11/2024 11/10/2024 025 12:35 PM EST documented as of this encounter Care Teams Operating Systems Specialist Relationship Specialty Start Date End Date Aristeo Rolle MD [address] [place] [address] [address] [place] [address] PCP - General Geriatric Medicine 11/11/24 documented as of this encounter
--- OUTSIDE RECORDS SUMMARY | 2025-10-11 10:54 | XMS_ITS | Clinical Summary ---
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 Acti ve galantamine (RAZADYNE) 12 MG tablet Take 12 mg by mouth 2 (two) times a day. Active memantine (NAMENDA) 10 MG tablet Take 10 mg by mouth 2 (two) times a day. Active lurasidone (LATUDA) 40 mg Tab 40 mg nightly at bedtime. Active simvastatin (ZOCOR) 40 MG tablet Take 20 mg by mouth nightly. Active carbidopa-levod opa (SINEMET CR) 25-100 mg per CR tablet Take 1 tablet by mouth 3 (three) times a day. Active rasagiline (AZILECT) 0.5 mg tablet Take 0.5 mg by mouth daily. Active pantoprazole (PROTONIX) 20 MG tablet Take 20 mg by mouth 2 (two) times a day. Active acetaminophen (TYLENOL) 500 MG tablet Take 500 mg by mouth every 6 (six) hours as needed for pain (specific location in comments). Active aspirin 81 mg chewable tablet Take 81 mg by mouth daily. Active oxybutynin (DITROPAN) 5 MG tablet Take 5 mg by mouth nightly at bedtime. Active citalopram (CELEXA) 10 MG tablet Take 3 tablets (30 mg total) by mouth nightly at bedtime. 2 Active lidocaine 4 % Place 1 patch onto the skin daily. 2 Active traMADoL (ULTRAM) 50 mg tablet Take 0.5 tablets (25 mg total) by mouth every 6 (six) hours as needed for severe pain (not responsive to tylenol/lidocai ne). 15 tablet 2 Active Active Problems Problem Noted Date Diagnosed Date Fracture of greater trochanter of left femur Abnormal EKG 06/04/2022 Assessment & Plan (06/04/2022 12:17 PM EDT): Old EKG from 10/21/2020 shows ? atrial fibrillation. Discussed with and no dx of A.Fib.Seen by Cardio at [facility] evaluated and no dx of A.fib. -No indication for rate controlling medications or OAC. - We will monitor on telemetry Hypokalemia 06/04/2022 Assessment & Plan (06/04/2022 12:20 PM EDT): Mild hyperkalemia today with potassium 3.2. - Replace with oral potassium 40 M EQ. - Repeat BMP in a.m. TIA (transient ischemic attack) 06/03/2022 Overview (06/03/2022): x3 Assessment & Plan (06/04/2022 11:59 AM EDT): History of prior TIAs, continued on aspirin and statin. No focal deficits at this time. -Outpatient follow-up with primary neurologist after discharge. Depression with anxiety 06/03/2022 Assessment & Plan (06/03/2022 2:56 PM EDT): Home medical regimen continued with citalopram, galantamine, lurasidone. Muscle spasm 06/03/2022 Overview (06/03/2022): recurrent, neurologist feels related to Parkinson's Disease Assessment & Plan (06/04/2022 12:05 PM EDT): No muscle spasms today. -Symptoms has been previously discussed with his neurologist who felt that the muscle spasms were transient and in response to physiologic stress. Symptoms on presentation were likely related to his hip fracture and associated pain. -Home Parkinson's medical regimen continued. Hip fracture, left, closed, initial encounter Assessment & Plan (06/04/2022 11:56 AM EDT): Patient presented with hip pain and confusion following a fall. Infectious work-up negative. Cardiac work-up- EKG narrow complex regular 75 appears to be sinus with trauma from Parkinson's. Old EKG with A. fib in October 2020. -Seen by orthopedic surgery nonoperative fracture. Recommends WBAT with PT/OT. -pain management with scheduled Tylenol and a lidocaine patch, tramadol available for breakthrough pain. -Zofran available as needed for nausea. -PT/OT evaluations with left hip trochanteric precautions. -Case management for discharge planning - monitor for fevers or signs of infection. -Monitor on telemetry overnight. Outpatient plan - Follow-up Ortho clinic in [place] without appointment in 2 weeks. Lower GI bleed 10/21/2020 Assessment & Plan (10/22/2020 12:23 PM EST): Painless rectal bleeding episode. Appears self-limited as he has had no recurrence. H/H stable. CTA showed no active bleeding. He had recent EGD and colonoscopy in June. He has known diverticular disease which would be the most likely culprit --GI has been consulted. Assuming continued improvement, may able to consider advancing diet and holding off on additional diagnostics. Will await further input Bradycardia 10/21/2020 Assessment & Plan (10/22/2020 12:20 PM EST): He has had mild bradycardia with heart rate in the 50s. EKG suggests atrial fibrillation with slow ventricular response but there is some artifact and P waves may be difficult to discern. No previous history of atrial fibrillation. He is not on any AV sherri blockers --Await formal read of EKG H/O: duodenal ulcer 05/26/2018 Vascular dementia 05/24/2018 Assessment & Plan (06/04/2022 12:03 PM EDT): Stable cooperative alert and oriented x3. Some forgetfulness. Poor historian. Assessment & Plan (10/22/2020 12:29 PM EST): No acute issues --Continue usual medications including memantine, lurasidone, galantamine Assessment & Plan (07/02/2020 12:30 PM EDT): Continue home medical regimen with galantamine, lurasidone, memantine, simvastatin. Assessment & Plan (05/24/2018 9:04 PM EDT): Presently cooperative and responding appropriate to questions --Continue usual home medications including galantamine, mematine, lurasidone, celexa Bipolar disorder Assessment & Plan (10/21/2020 11:35 PM EST): Stable. We will continue with home medications. Parkinson's disease Assessment & Plan (06/04/2022 11:58 AM EDT): Patient with known vascular dementia and Parkinson's disease. Followed by neurology. Typically independent with his activities of daily living, ambulates with a Rollator walker outside the house. Patient alert and oriented x3. Able to recall that he was walking in his house without his walker when he fell. Reports [id number] carpets in his home. -Participating in PT OT. Assessment & Plan (10/22/2020 12:25 PM EST): No acute issues --Continue usual regimen of Sinemet, rasagiline Resolved Problems Problem Noted Date Diagnosed Date Resolved Date GI bleed 05/24/2018 10/21/2020 Assessment & Plan (07/02/2020 12:28 PM EDT): He was able to be taken directly from the emergency department for upper endoscopy 06/29 Impression: Abnormal esophageal motility, suspicious for presbyesophagus - A medium amount of food (residue) in the stomach.- Normal examined duodenum. - No specimens collected. Colonoscopy showed only fair prep and stool throughout the colon. No acute findings, presumed secondary to diverticular bleed. Appeared to have resolved overnight and no further bleeding however this morning had a blood-streaked stool and then another burgundy stool with more pronounced blood in it. Hemoglobin remained stable I had expected to discharge the patient home yesterday but he had 2 large burgundy stools. Despite this his hemoglobin has remained fairly stable, at 6 AM yesterday hemoglobin was 12. 3 then at noon 11.9 and then last night 10.9, back up this morning to 11.1 No further bleeding since yesterday morning Appreciate GI consult-home today, and patient are given instructions and signs and symptoms to monitor for Assessment & Plan (05/25/2018 8:24 AM EDT): Presenting with acute onset painless rectal bleeding. H&H as decreased to 11.2/33.9 compared to previous on 02/09/2018 where hemoglobin was 14.1. This may represent acute or subacute blood loss anemia. Lower GI bleed may be diverticular or hemorrhoidal. Clinical findings do not just colitis or upper GI source at this point Slight drop in H&H overnight which may be due to ongoing bleeding versus hemodilution --Holding aspirin and avoiding anticoagulants --NPO --GI consult, with tentative plan for colonoscopy later today Immunizations Immunization Administration Dates Next Due Influenza High-Dose Quadriva lent Preservative Free IM 07/02/2020 Pneumococcal conjugate PCV13 10/22/2020(Deferred : Patient Refused) Tdap 12/22/2017 Family History Medical History Relation Comments Diabetes Mother Relation Status Comments Father Mother Social History Tobacco Use Types Packs/Day Years Used Date Smoking Tobacco: Former Cigarettes Q uit: 2002 Smokeless Tobacco: Never Alcohol Use Standard Drinks/Week Comments No 0 (1 standard drink = 0.6 oz pur e alcohol) Education Answer Date Recorded Are you interested in more education? Not on radha e 02/09/2023 Are you concerned about learning? Not on file 02/09/2023 No 02/09/2023 No 02/09/2023 Digital Access Answer Date Recorded No 03/10/2023 No 03/10/2023 Reliable internet access at home? Not on file 03/10/2023 Device with a working camera? 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 Not on file Not on file Not on file Last Filed Vital Signs Vital Sign Reading Time Taken Comments Blood Pressure 138/83 06/05/2022 2:54 PM EDT Pulse 69 06/05/2022 2:54 PM EDT Temperature 36.1 C (96.9 F) 06/05/2022 2:54 PM EDT Respiratory Rate 16 06/05/2022 2:54 PM EDT Oxygen Saturation 97% 06/05/2022 2:54 PM EDT Inhaled Oxygen Concentration 21% 06/29/2020 2 :46 PM EDT Weight 53.9 kg (118 lb 13.3 oz) 06/03/2022 5:26 PM EDT Height 167.6 cm (5' 6 ) 06/03/2022 5:26 PM EDT Body Mass Index 19.18 06/03/2022 5:26 PM EDT Plan of Treatment Health Maintenance Due Date Last Done Comments DEPRESSION SCREENING 1954 RSV VACCINE (1 - 1-dose 75+ series) 2017 INFLUENZA VACCINE (#1) 2025 , 07/02/2020, 06/19/2020, Additional history exists COVID-19 VACCINE ( season) 2025 02/03/2022, 03/25/2021, 02/25/2021 Adult Td,Tdap Booster 12/23/2027 12/22/2017 , 10/24/2012, 10/15/2004 PNEUMOCOCCAL VACCINES (50+ years) Completed 11/28/2016, 11/11/2015, 07/15/2010 ZOSTER VACCINES Completed 02/20/2019, 10/16, 11/28/2016, Additional history exists HEPATITIS A VACCINES Aged Out No long er eligible based on patient's age to complete this topic HIB VACCINES Aged Out No longer eligi ble based on patient's age to complete this topic MENINGOCOCCAL VACCINES (ACWY) Aged Out No longer eligible based on patient's age to complete this topic MENINGOCOCCAL VACCINES (B) Aged Out N o longer eligible based on patient's age to complete this topic Medical Devices Not on file Insurance [facility] MEDICARE REPLACEMENT [facility] MEDICARE REPLACEMENT [facility] MEDICARE REPLACEMENT [facility] MEDICARE [facility]PLACEMENT [facility] MEDICARE [facility]PLACEMENT [facility] MEDICARE REPLACEMENT [facility] MEDICARE REPLACEMENT Member Subscriber Plan / Payer (Ef fective 2020-Present) Name:Evan Hankins Relation to Subscriber:Self Name:Evan Hankins Payer ID:[id number] (NAIC) Group ID:[id number] Type:Medicare Address: [address] [facility] [place] [address] [facility] MEDICARE REPLAC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 05/28/2018 8:49 AM * Full Code (Latest Code Status on File) Date Activated Date Inactivated Comments 06/03/2022 2:50 PM Question Answer Comments Code Status Confirmed With: PatientFamily * Full Code Date Activated Date Inactivated Comments 10/22/2020 1:10 AM 06/03/2022 2:50 PM Question Answer Comments Code Status Confirmed With: Patient * Full Code Date Activated Date Inactivated Comments 06/29/2020 5:26 PM 10/22/2020 1:10 AM Question Answer Comments Code Status Confirmed With: Patient * Full Code (Presumed) Date Activated Date Inactivated Comments 05/24/2018 8:34 PM 05/26/2018 1:09 PM Care Teams Lye Bath Operator Relationship Specialty Start Date End Date Pool Perez NP [address] [place] [id number] PCP - General 04/06/20 Additional Source Comments The information contained in this document represents components of the legal health record. It is not the complete legal health record[facility]
--- OUTSIDE RECORDS SUMMARY | 2025-10-11 10:54 | XMS_ITS | Data Portability ---
Author Organization [place] - [facility] Address [address] [place] [phone] Care Team Providers Care Coal Getter Name Role Phone [facility] Primary Care Provid er Assessment Encounter Date Assessment Date Assessment LastModified by Organization Details LastModified Time 04/23/2020 04/23/2020 Overview/History : This is a 79-year-old male that as a new patient [facility]. He has a medical history significant for Parkinson's, dementia, osteoarthritis, dysphagia, GERD and it sounds as though atrial fibrillation may have been recently diagnosed when he was at [facility]. He has been having complaints of right sided rib pain for the past several weeks. He reportedly had x-rays completed and [facility] which showed evidence of underlying COPD but no mention of any acute process ease. He is often having some abdominal discomfort for which he has seen his PCP. He had a KUB which showed evidence of significant constipation and has been started on stool softeners. He has an appointment with his PCP next week. PCP had given the patient and his [facility] phone number in case the patient needed a evaluation sooner. [facility] was contacted to evaluate patient today for rib pain. It is unclear if it was the patient who initiated this call or if the BCP started the process for them. Patient reports he has been having normal bowel movements and continues on stool softeners. He has been eating and drinking normally with no nausea or vomiting. The pain in his right side is worse with inspiration and with manual manipulation of the rib area. He denies any recent trauma to that area. Has been taking Tylenol with some effect. He also recently had some sort of dermatologic procedure completed in [place] earlier this week and is presently on a course of doxycycline. Exam: On exam patient is awake and alert, afebrile and hemodynamically stable. He is noted to have an irregular heart rate. Lungs clear to auscultation bilaterally. He does report pain with inspiration as well as pain with manipulation of the right lower ribs. No pain with manipulation of the sternum. There was no evidence of trauma or bruising to this area. Abdomen is soft with normal bowel sounds, no pain with palpation. DDx considered, but not limited to:Pain is likely muscular in origin since it is reproducible though the patient is denying any trauma that would account for this. Rib fracture is considered however this would have shown up on prior x-rays. Costochondritis considered however pain is only right-sided and not in the sternal area. I do not feel that the rib pain has anything related due to his constipation. Constipation seems to be resolving as he is having normal bowel movements and abdomen soft. Bowel obstruction not likely as patient is able to tolerate p.o. and is moving his bowels. Acute abdomen considered however abdomen is soft and patient is afebrile. ACS is unlikely as the patient is reporting side pain not chest pain and the pain is clearly reproducible. Work up/Results:Physica l exam only Plan/Discussion: I discussed with the patient and his that I do not necessarily see an indication for any repeat x-rays. They seem to be under the impression that that was the reason for the visit from [facility]. I also informed them that due to the numerous stairs at their home that mobile imaging would not be an option for them and the ways we cannot get the equipment that many steps. I also reassured them that his abdomen is soft and he has normal bowel sounds so I am not concerned for bowel obstruction instances reported normal stools that I think the constipation is resolving. I did explain that his rib pain sounds to be musculoskeletal in origin. He is unfortunately allergic to Aleve so I could not give him any topical diclofenac I did prescribe for him topical Lidoderm patches to see if this improves her symptoms. If this chest pain continues he may need more advanced imaging to be ordered by his PCP. I advised that they keep their scheduled followup appointment with primary care provider next week. In order to obtain further information and compare any laboratory results/values, I have accessed patient records on the [employer]. This information was pertinent in my medical decision making today. Time On Scene with Patient: 00:25:27 Proper Personal Protective Equipment (PPE), including gloves, eye protection and masks were donned and doffed appropriately and all equipment cleaned using approved technique with germicidal disposable wipes prior to and after care of this patient according to [facility]'s infection prevention protocols. [email or web address] Not available 04/23/2020 17:53:14 Plan of Treatment Reminders Order Date Submit Date Provider Last Modified By Organization Details Last Modified Time Details Appointments None recorded. Lab None recorded. Referral None recorded. Procedures None recorded. Surgeries None recorded. Imaging None recorded. Medication Orders lidocaine 5 % topical patch 2019 020 INTERFACE [facility], [address] [place] [address], [address], 0 17:52:07 Patient TargetsNo targets recorded. Patient InstructionsNo instructions recorded. Reason for Referral None Reported. Procedures Surgical History Date Name Laterality Status Provider Name and Address Organization Details Recorded Time 04/23/20 20 Medication Review completed MELIA STANLEY NP [address], [place], [address], [place] [facility] 04/23/2020 17:48:22 Imaging Results None recorded. Procedure Notes None recorded. Medical Equipment None Reported. Allergies Allergen ID Allergen Name Allergen Category Reaction Reaction Severity Criticality Documentation Date Start Date Code Code System Note Provider Name and Address Organization Details Recorded Time 089217 Aleve medicatio n Not available Not available Not available 04/23/2020 98190 1 RxNorm MELIA STANLEY NP [address] [place], [address], [place] [facility] 16:53:36 227772 lithium Not available Not available Not available Not available 04/23/2020 6448 RxNorm MELIA STANLEY NP [address] [place], [address], [place] [facility] 0 16:53:53 Medications Name Sig Start Date Stop Date Status Note LastModified by Organization Details LastModified Time lamotrigine 150 mg tablet TAKE 1 TABLET BY MOUTH AT BEDTIME active Not Available Not Available No t Available doxycycline hyclate 100 mg capsule active Not Available Not Available N ot Available galantamine 12 mg tablet active Not Available Not Available Not Available penicillin V potassium 500 mg tablet TAKE 1 TABLET BY MOUTH THREE TIMES DAILY FOR 5 DAYS active Not Available Not Available No t Available acetaminophen 500 mg tablet active Not Available Not Availabl e Not Available simvastatin 40 mg tablet active Not Available Not Available Not Available ketorolac 0.5 % eye drops active Not Available Not Available Not Available potassium chloride 20 mEq oral packet active Not Available Not Available Not Available citalopram 20 mg tablet TAKE 1 AND 1/2 TABLET BY MOUTH AT BEDTIME active Not Available Not Available N ot Available prednisolone acetate 1 % eye drops,suspens ion active Not Available Not Available Not Available lidocaine 5 % topical patch APPLY 1 PATCH BY TOPICAL ROUTE ONCE DAILY (MAY WEAR UP TO 12HOURS.) 2019 active Not Available Not Available Not Avai lable betamethasone dipropionate 0.05 % topical cream APPLY CREAM SPARINGLY TO AFFECTED AREA ON RIGHT ARM TWICE DAILY IF NEEDED active Not Available Not Available No t Available omeprazole 20 mg capsule,delay ed release active Not Available Not Available N ot Available carbidopa 25 mg-levodopa 100 mg tablet active Not Available Not Availabl e Not Available moxifloxacin 0.5 % eye drops active Not Available Not Available Not Available memantine 10 mg tablet active Not Available Not Available No t Available rasagiline 0.5 mg tablet active Not Available Not Availabl e Not Available Latuda 40 mg tablet TAKE 1 TABLET BY MOUTH AT BEDTIME active Not Available Not Available No t Available Fluzone High-Dose 2019-20 (PF) 180 mcg/0.5 mL intramuscular syringe ADM 0.5ML IM UTD active Not Available Not Available No t Available Vitals Date Recorded Oxygen saturation Heart rate Respiratory rate Body temperature Systolic And Diastolic Provider Name and Address Organization Details Last Updated DateTime 0 92 % 56 /min 12 /min 99.4 [degF] 150/70 mm[Hg] Not Available [facility] 0 16:20:58 Social History Question Answer Notes LastModified by Organizat ion Details LastModified Time Tobacco Smoking Status Former Smoker MELIA STANLEY NP [address], [place], [address], [place] [facility] 04/23/2020 16:57:18 Do You Have An Advance Directive? No [email or web address] Information not available 04/23/2020 What Is Your Code Status? Full Code [email or web address] Information not available 04/23/2020 Within The Past 12 Months, Has It Happened That The Food You Bought Just Didn't Last And You Didn't Have Money To Get More. No [email or web address] Information not available 04/23/2020 Within The Past 12 Months, Have You Worried That Your Food Would Run Out Before You Got Money To Buy More. No [email or web address] Information not available 04/23/2020 Fall Risk: Do You Feel Unsteady When Standing Or Walking? Yes [email or web address] Information not available 04/23/2020 We Know That How And When People Interact With Friends And Family Can Be Very Different From Person To Person. How Often Do You Have The Opportunity To See Or Talk To People That You Care About And Feel Close To? (Ex: Talking To Friends On The Phone Or Visiting Friends Or Family Or Going To Worship Or Club Meetings) Choose Not To Answer This Question [email or web address] Information not available 04/23/2020 Excessive Alcohol Or Drug Use No [email or web address] Information not available 04/23/2020 We Know From Many Of Our Patients That Covering All Of Their Costs Can Be Difficult At Times. This Can Cause Stress And Impact Health. In The Past Year, Have You Been Unable To Get Any Of The Following When It Was Really Needed? No [email or web address] Information not available 04/23/2020 What Is Your Housing Situation Today? I Have Housing [email or web address] Information not available 04/23/2020 Would You Like Help Connecting To Resources? None [email or web address] Information not available 04/23/2020 Sex: Unknown Functional Status None recorded. Mental Status None recorded. Family History Nothing Reported Notes:pt with jairo mcgowan t answer Medical History No medical history recorded. Past Encounters Encounter ID Performer Location Encounter Start Date Encounter Closed Date Diagnosis/Indication Diagnosis SNOMED-CT Code Diagnosis ICD10 Code Diagnosis IMO Codes Diagnosis Note [id number] MELIA STANLEY NP [facility] [address] [place] [address] 04/23/2020 16:17:18 04/26/2020 08:07:50 Rib pain 213958276 R07.81 Constipation 73404630 K5 9.00 Health Concerns Section Related Observation LastModified by Organization Detai ls LastModified Time None Recorded Concern Status LastModified by Organization Details LastModified Time None Recorded Advance Directives Directive N: Payers Insurance Date Sequence Insurance Name Policy Number Policy Cronin Covered Member ID Cronin Member ID Guarantor Name 04/23/2020 1 [facility] - DOS PRIOR TO 2023 - DUAL ELIGIBLE (MEDICARE REPLACEMENT/AD VANTAGE - HMO) Evan Hankins [id number] Evan Hankins 04/23/2020 1 *SELF PAY* Evan Hankins [id number] Evan Hankins Notes Date Note Type Note Provider Name and Address Organization Details Recorded Time 04/23/2020 text/html This is a 79-year-old male that is a new patient [facility]. He has a medical history significant for Parkinson's, dementia, arthritis and depression. He has been having complaints of rib pain. In reviewing old records from his PCP it appears that he was at [facility] emergency department and did have a chest x-ray which showed chronic coarse interstitial pattern likely indicating underlying COPD, no acute pathology . There was no mention of any potential rib fractures. She also mentions hearing that her may have atrial fibrillation at 1 point when he was at [facility]. He does not appear to be on any anticoagulation. He saw his PCP earlier this month, a KUB was obtained and showed pretty significant constipation. He was started on a regimen of stool softeners. In reviewing records from his PCP looks like costochondritis was considered as well as rib discomfort being referred due to his underlying constipation. His last appointment was on 04/21. He has a scheduled followup next week. His PCP per her note gave him the phone number for [facility] if he needed evaluation prior to next scheduled followup appointment. His did eventually contact [facility]. She indicated that she had a referral for an x-ray when she called in. When I arrived to the home today. She told me she was not entirely sure why [employer] was coming out, she thought that it had been arranged by her PCP however our records indicate that she is the 1 who called the call center. She tells me that her has dementia so that she will answer many questions for him. The patient does tell me that he has been having rib pain on the right side that has been ongoing for several weeks. He reports it is worse when he takes a deep breath in and also worsened with palpation over his ribs. It does sound as though he has been moving his bowels regularly and his stools have been soft to loose, he denies any hard stools or having to strain to have a bowel movement. Has been eating and drinking normally. He recently had some sort of dermatologic procedure performed in [place] and is presently on a course of doxycycline. MELIA STANLEY NP [address] [place] [address], [place], [address], [place] [facility] 04/23/2020 17:53:23
--- OUTSIDE RECORDS SUMMARY | 2025-10-11 10:54 | XMS_ITS | Encounter Summary ---
Author Organization [facility] Address [address] [place] [address] Care Team Providers Care Glaze Wiper Name Role Phone Aristeo Rolle MD Primary Care Provider [phone] Encounter Details Date Type Department Care Team (Late st Contact Info) Description 11/11/2024 Lab Requisition [facility] - Main Lab [address] [place] [address] Aristeo Rolle MD [address] [place], [place] [id number] Nasal congestion; Acute cough Social History Tobacco Use Types Packs/Day Years [...] Procedure Name Priority Date/Time Associated Diagnosis Comments [id number], RSV, FLU A AND B QUALITATIVE RT-PCR, LOCAL REFERENCE LAB Routine 11/10/2024 12:00 PM EST Nasal congestion Acute cough documented in this encounter Results * (ABNORMAL) [id number], RSV, Influenza A and B qualitative RT-PCR (11/10/2024 12:00 PM EST) SARS COV-2 Not Detected Not Detected LAB MOLECULAR DIAGNOSTICS METHOD 11/11/2024 12:35 PM EST [facility] Comment: Disclaimer: The manner in which this information is used to guide patient care is the responsibility of the healthcare provider. Testing was performed using the [employer] m SARS-CoV-2 test. This test has been authorized by FDA under an Emergency Use Authorization (EUA). This test is only authorized for the duration of time the declaration that circumstances exist justifying the authorization of the emergency use of in vitro diagnostic tests for detection of SARS-CoV-2 virus and/or diagnosis of COVID-19 infection under section 564(b)(1) of the Act, 21 U.S.C. 360bbb- 3(b)(1), unless the authorization is terminated or revoked sooner. Fact sheet for Healthcare Providers can be found at: https://www.fda.gov/media/938686/download Fact sheet for Patients can be found at: https://www.fda.gov/media/567245/download Influenza A PCR Detected(A ) Not Detected LAB MOLECULAR DIAGNOSTICS METHOD 11/11/2024 12:35 PM EST [facility] Influenza B PCR Not Detected Not Detected LAB MOLECULAR DIAGNOSTICS METHOD 11/11/2024 12:35 PM [facility] RSV PCR Not Detected Not Detected LAB MOLECULAR DIAGNOSTICS METHOD 11/11/2024 12:35 PM [facility] Swab Nasopharyngeal structure / Unknown 11/10/2024 12:00 PM EST 11/11/2024 9:43 AM EST Aristeo Rolle MD LAB MICROBIOLOGY - GENERAL ORDER SKYLER Final Result [facility] [address] [place] [address], documented in this encounter Visit Diagnoses Diagnosis Nasal congestion Other diseases of nasal cavity and sinuses Acute cough documented in this encounter Additional Health Concerns Infection Onset Date Last Indicated Resolved Time Influenza 11/10/2024 11/10/2024 12/04/2024 7:07 PM EST Respiratory Rule-Out 11/11/2024 11/10/2024 025 12:35 PM EST documented as of this encounter Care Teams Glaze Wiper Relationship Specialty Start Date End Date Aristeo Rolle MD [address] [place] [address] [address] [place] [address] PCP - General Geriatric Medicine 11/11/24 documented as of this encounter
--- OUTSIDE RECORDS SUMMARY | 2025-10-11 10:54 | XMS_ITS | Encounter Summary ---
Author Organization [facility] Address [address] [place] [address] Phone Care Team Providers Care Featheredger And Reducer Machine Name Role Phone Luke Gaitan Primary Care Provider [phone] Daija Banegas MD Primary Care Provider Pool Perez NP Primary Care Provider [phone] Encounter Details Date Type Department Care Team (Late st Contact Info) Description 06/18/2018 Ancillary Orders Virtual Department [address] [place] [address] Luke Baxter PA [address] [place] [address] Phlebitis Social History Tobacco Use Types Packs/Day Years [...] on file documented as of this encounter Results * US Lower Extremity Veins Duplex (Left) (06/20/2018 1:00 PM EDT) Anatomical Region Laterality Modality Hip Left, Thigh Left, Knee L eft, Leg Left, Ankle Left, Foot Left Ultrasound 06/20/2018 1:04 PM EDT Impressions 06/20/2018 1:05 PM EDT 1. No evidence of left lower extremity deep venous thrombosis. 2. Calf varicosities and thrombophlebitis. A message regarding these results were called to the referring providers office at the time of dictation on the patient waited in the radiology department. POS [id number] Narrative 06/20/2018 1:05 PM EDT COMPARISON: None. LEFT LOWER EXTREMITY DOPPLER VENOUS ULTRASOUND FINDINGS: There is no evidence of left lower extremity deep venous thrombosis from the common femoral vein to the trifurcation veins. Deep veins are compressible with normal color flow and augmentation. No popliteal cyst. Additional findings: There are varicosities in the calf. 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 Procedure Note Rei West MD - 06/20/2018 COMPARISON: None. LEFT LOWER EXTREMITY DOPPLER VENOUS ULTRASOUND FINDINGS: There is no evidence of left lower extremity deep venous thrombosis fromthe common femoral vein to the trifurcation veins. Deep veins arecompressible with normal color flow and augmentation. No popliteal cyst. Additional findings: There are varicosities in the calf. One of thevaricose veins are thrombosed. IMPRESSION: 1. No evidence of left lower extremity deep venous thrombosis. 2. Calf varicosities and thrombophlebitis. A message regarding these results were called to the referring providersoffice at the time of dictation on the patient waited in the radiologydepartment. POS [id number] Luke ALEX CV US VASCULAR Lily l Result documented in this encounter Visit Diagnoses Diagnosis Phlebitis Phlebitis and thrombophlebitis of unspecified site Phlebitis Phlebitis and thrombophlebitis of unspecified site documented in this encounter Additional Health Concerns Infection Onset Date Last Indicated Resolved Time CoV-Risk 04/10/2020 04/10/2020 04/24/2020 1:24 AM EDT documented as of this encounter Care Teams Featheredger And Reducer Machine Relationship Specialty Start Date End Date Luke Gaitan [address] [facility] [place] [address] PCP - General 02/09/18 03/14/19 Daija Banegas MD [address] [place] [id number] [email or web address] PCP - General Family Medicine 03/15/19 09/24/19 Pool Perez NP [address] [place] [address] PCP - General 04/06/20 documented as of this encounter Additional Source Comments The information contained in this document represents components of the legal health record. It is not the complete legal health record.[facility]
--- OUTSIDE RECORDS SUMMARY | 2025-10-11 10:54 | XMS_ITS | Encounter Summary ---
Author Organization [facility] Address [address] [place] [address] Phone Care Team Providers Care Butcher'S Assistant Name Role Phone Daija Banegas MD Primary Care Provider [phone]- [phone] Pool Perez NP Primary Care Provider +1- [phone] Reason for Referral * MRI/CAT Scan - Closed Specialty Diagnoses / Procedures Referred By Laila morales Referred To Contact Radiology Diagnoses Gait disorder Memory loss Parkinsons Procedures MRI Brain Maya Ding MD Phone: tel: fax: Referral ID Status Reason Start Date Expiration Date Visits Re quested Visits Authorized [id number] Closed 06/11/2019 08/09/2019 1 1 Encounter Details Date Type Department Care Team (Latest Contact Info) Description 04/24/2019 Transcribe Orders Virtual Department [address] [place] [address] Maya Ding MD [address] [place] [address] [place] [id number] Gait disorder (Primary Dx); Memory loss; Parkinsons Social History Tobacco Use Types Packs/Day Years [...] documented as of this encounter Results * MRI BRAIN WITHOUT CONTRAST (08/22/2019 12:04 PM EST) Anatomical Region Laterality Modality Head Magnetic Resonan ce 08/22/2019 12:1 4 PM EST Impressions 08/22/2019 12:19 PM EST Mild to moderate atrophy both infra and supratentorially, with extensive small vessel ischemic disease suggested. No acute infarct, mass effect, or acute intracranial hemorrhage is seen. No cerebellopontine angle pathology is noted. The internal auditory canals are symmetric. S/S: Unsteady gait, memory loss, small vessel ischemic disease, cerebral atrophy, history of Parkinson's and mini strokes. POS - [id number] Narrative 08/22/2019 12:19 PM EST COMPARISON: CT brain November 02, 2018 TECHNIQUE: Exam performed on a 1.5 Hazel high-field MRI scanner. Axial T1, T2, T2*, T2 FLAIR and diffusion-weighted imaging with ADC map, sagittal T1 sequences were obtained. FINDINGS: The exam is mildly limited by patient motion. The ventricular system is appropriate size and position for the mild to moderate atrophy that is seen. Extensive white matter increased signal on T2 FLAIR acquisition is noted and is most suggestive of small vessel ischemic disease. On diffusion-weighted imaging there are no parenchymal findings of significant restricted diffusion seen. No acute infarct is noted. No acute intracranial hemorrhage is suggested. No shift of midline structures or mass effect is seen. The cerebellar tonsils are normally positioned. The sella turcica is unremarkable. The sinuses are clear. There is normal aeration of the mastoid air cells. There is focal CSF signal in the medial left cerebellar peduncle. This may be related to prior infarction. Procedure Note Primo Davila MD - 08/22/2019 COMPARISON: CT brain November 02, 2018 TECHNIQUE: Exam performed on a 1.5 Hazel high-field MRI scanner. AxialT1, T2, T2*, T2 FLAIR and diffusion-weighted imaging with ADC map,sagittal T1 sequences were obtained. FINDINGS: The exam is mildly limited by patient motion. The ventricular system is appropriate size and position for the mild tomoderate atrophy that is seen. Extensive white matter increased signal on T2 FLAIR acquisition is notedand is most suggestive of small vessel ischemic disease. On diffusion-weighted imaging there are no parenchymal findings ofsignificant restricted diffusion seen. No acute infarct is noted. No acute intracranial hemorrhage is suggested. No shift of midline structures or mass effect is seen. The cerebellar tonsils are normally positioned. The sella turcica isunremarkable. The sinuses are clear. There is normal aeration of the mastoid aircells. There is focal CSF signal in the medial left cerebellar peduncle. This maybe related to prior infarction. IMPRESSION: Mild to moderate atrophy both infra and supratentorially, with extensivesmall vessel ischemic disease suggested. No acute infarct, mass effect, oracute intracranial hemorrhage is seen. No cerebellopontine angle pathology is noted. The internal auditory canalsare symmetric. S/S: Unsteady gait, memory loss, small vessel ischemic disease, cerebralatrophy, history of Parkinson's and mini strokes. POS - [id number] Maya Ding MD IMG MR HEAD/NECK Final Result documented in this encounter Visit Diagnoses Diagnosis Gait disorder- Primary Abnormality of gait Memory loss Parkinsons Paralysis agitans Gait disorder Abnormality of gait Memory loss Parkinsons Paralysis agitans documented in this encounter Additional Health Concerns Infection Onset Date Last Indicated Resolved Time CoV-Risk 04/10/2020 04/10/2020 04/24/2020 1:24 AM EDT documented as of this encounter Care Teams Butcher'S Assistant Relationship Specialty Start Date End Date Daija Banegas MD [address] [place] [id number] [email or web address] PCP - General Family Medicine 03/15/19 09/24/19 Pool Perez NP [facility] [place] [address] PCP - General 04/06/20 documented as of this encounter Additional Source Comments The information contained in this document represents components of the legal health record. It is not the complete legal health record.[facility]
--- OUTSIDE RECORDS SUMMARY | 2025-10-11 10:54 | XMS_ITS | Clinical Summary ---
Author Organization [facility] Address [address] [place] [address] Phone Care Team Providers Care Ferryboat Operator Helper Name Role Phone Aristeo Rolle MD Primary Care Provider [phone] Surgical History Surgery Date Site/Laterality Comments APPENDECTOMY 1999 PROCEDURE: HISTORICAL APPENDECTOMY CATARACT EXTRACTION 2011 Left PROCEDURE: HISTORICAL CATARACT REMOVAL KNEE SURGERY 2010 PROCEDURE: HISTORICAL KNEE SURGERY; COMMENT: menisectomy Medical History Medical History Date Comments [place] [place] [facility] [place] 07/15/2019 DX:Atrial fibrillation ([facility]) ; COMMENT: DX 11/02/18 at ER, followed [place] Bipolar disorder [place] [place] 4, [facility] [place] 07/15/2019 DX:Bipolar disorder ([facility]) Colon polyp 07/15/2019 DX:Colon polyp Depression 07/15/2019 DX:Depression Eczema 07/15/2019 DX:Eczema Esophageal stricture 07/15/2019 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 [place] [place] [facility] [place] 07/15/2019 DX:Hemiplegia as late effec t of stroke ([facility]); COMMENT: LLE weakness Hemorrhoids 07/15/2019 DX:Hemorrhoids History of subarachnoid hemorrhage 07/15/2019 DX:History of subarachnoid hemorrhage; COMMENT: 07/2018 Marijuana use, episodic 07/15/2019 DX:Marij uana use, episodic Parkinson's disease ([facility] [place], [facility] [place]) 07/15/2019 DX:Parkinson's disease ([facility]) Peripheral vascular disease ([facility] [place]) 07/15/2019 DX:Peripheral vascular disea se ([facility]); COMMENT: Wears compression socks PTSD (post-traumatic stress disorder) 07/15/2019 DX:PTSD (post-traumatic stress disorder) Vascular dementia [place] [place], [facility]) 07/15/2019 DX:Vascular dementia (HCC) Family History Medical History Relation Name Comments Stroke Father Stroke Maternal Grandfather Relation Name Status Comments Father Maternal Grandfather Social History Tobacco Use Types Packs/Day Years Used Date Smoking Tobacco: Never Assessed Sex and Gender Information Value Date Recorded Sex Assigned at Not on file Legal Sex Male 6:23 AM EST Gender Identity Not on file Sexual Orientation Not on file Plan of Treatment Health Maintenance Due Date Last Done Comments Zoster Vaccines (2 of 3) 05/21/2014 03/26/2014 RSV Immunization Adult Patients (1 - 1-dose 75+ series) 2017 Falls Risk Assessment 09/17/2022 Medicare Annual Wellness Visit 09/17/2022 Social Influencers of Health Screening 09/17/2022 Depression Screening 10/15/2024 COVID-19 Vaccine (1 - 2024-2 6 season) 2025 Influenza Vaccine (#1) 2025 07/02/2020 DTaP,Tdap,and Td Vaccines (3 - Td or Tdap) 12/23/2027 12/22/2017, 10/24/2012 Cholesterol Screening (Lipid Panel) 12/01/2029 12/01/2024 Pneumococcal Vaccine: 50+ Years Completed 11/11/2015, 07/15/2010 HIB Vaccines Aged Out No longer eligi ble based on patient's age to complete this topic HPV Vaccines Aged Out No longer eligi ble based on patient's age to complete this topic Hepatitis A Vaccines Aged Out No long er eligible based on patient's age to complete this topic Hepatitis B Vaccines Aged Out No long er eligible based on patient's age to complete this topic IPV Vaccines Aged Out No longer eligi ble based on patient's age to complete this topic MMR Vaccines Aged Out No longer eligi ble based on patient's age to complete this topic Meningococcal ACWY Vaccine Aged Out N o longer eligible based on patient's age to complete this topic Meningococcal B Vaccine Aged Out No l onger eligible based on patient's age to complete this topic RSV Immunization Patients Under 20 months Aged Out No longer eligible b ased on patient's age to complete this topic Varicella Vaccines Aged Out No longer eligible based on patient's age to complete this topic Procedures Procedure Name Priority Date/Time Associated Diagnosis Comments LIPID PANEL WITH REFLEX TO DIRECT LDL Routine 12/01/2024 6:40 AM EST Hyperlipidemia, unspecified Vascular dementia, unspecified severity, without behavioral disturbance, psychotic disturbance, mood disturbance, and anxiety (CMS/HCC) Type 2 diabetes mellitus without complications (CMS/HCC) from Last 3 Months or Most Recently Relevant to Health Maintenance Results * (ABNORMAL) Lipid panel with reflex to direct LDL (12/01/2024 6:40 AM EST) Cholesterol 108 0 - 200 mg/dL LAB CHEMISTRY METHOD 12/01/2024 11:50 AM EST [facility] Triglycerides 68 0 - 150 mg/dL LAB CHEMISTRY METHOD 12/01/2024 11:50 AM EST [facility] HDL 34(L) >=40 mg/dL LAB CHEMISTRY METHOD 12/01/2024 11:50 AM EST [facility] LDL Calculated 60 0 - 100 mg/dL LAB CHEMISTRY METHOD 12/01/2024 11:50 AM EST [facility] VLDL Cholesterol Mukund 13.6 mg/dL LAB CHEMISTRY METHOD 12/01/2024 11:50 AM EST [facility] Non HDL Chol. (LDL+VLDL) 74 <145 mg/dL LAB CHEMISTRY METHOD 12/01/2024 11:50 AM EST [facility] Chol/HDL Ratio 3.2 0.0 - 4.4 LAB CHEMISTRY METHOD 12/01/2024 11:50 AM EST [facility] Blood Venous blood specimen / Unknown Venipuncture / Unknown 12/01/2024 6:40 AM EST 12/01/2024 10:52 AM EST us Shai Tan MD LAB BLOOD ORDERABLES Final Res ult [facility] [address] [place] [address], [place] [phone] from Last 3 Months or Most Recently Relevant to Health Maintenance Insurance MEDICARE [place]ICAID - [place] Care Teams Ferryboat Operator Helper Relationship Specialty Start Date End Date Aristeo Rolle MD [address] [place] [address] [address] [place] [address] PCP - General Geriatric Medicine 11/11/24
--- OUTSIDE RECORDS SUMMARY | 2025-10-11 10:54 | XMS_ITS | Encounter Summary ---
Author Organization [facility] Address [address] [place] [address] Phone Care Team Providers Care Wood Gluer Name Role Phone Debbi Segal MD, MPH Primary Care Provider + Luke Gaitan Primary Care Provider Daija Banegas MD Primary Care Provider Pool Perez NP Primary Care Provider [phone]- [phone] Encounter Details Date Type Department Care Team (Late st Contact Info) Description 12/22/2017 Procedure Pass [facility], Ct Scan - [address] [address] Social History Tobacco Use Types Packs/Day Years Used Date Smoking Tobacco: Never Smokeless Tobacco: Never Alcohol Use Standard Drinks/Week [...] documented as of this encounter Care Teams Wood Gluer Relationship Specialty Start Date End Date Debbi Segal MD, MPH [address] [place] [address] [email or web address] PCP - General 10/18/17 02/08/18 Luke Gaitan [address] [facility] [place] [address] PCP - General 02/09/18 03/14/19 Daija Banegas MD [address] [place] [address] [email or web address] PCP - General Family Medicine 03/15/19 09/24/19 Pool Perez NP [address] [place] [address] PCP - General 04/06/20 documented as of this encounter Additional Source Comments The information contained in this document represents components of the legal health record. It is not the complete legal health record.[facility]
--- OUTSIDE RECORDS SUMMARY | 2025-10-11 10:54 | XMS_ITS | Encounter Summary ---
Author Organization [facility] Address [address] [place] [address] Phone Care Team Providers Care Broaching Machine Set Up Operator Name Role Phone Daija Banegas MD Primary Care Provider [phone]- [phone] Pool Perez NP Primary Care Provider [phone]- [phone] Encounter Details Date Type Department Care Team (Late st Contact Info) Description 04/24/2019 Procedure Pass [facility], [address] [address] Social History Tobacco Use Types Packs/Day Years [...] documented as of this encounter Care Teams Broaching Machine Set Up Operator Relationship Specialty Start Date End Date Daija Banegas MD [address] [facility] [address] [place] [address] [email or web address] PCP - General Family Medicine 03/15/19 09/24/19 Pool Perez NP [address] [place] [address] PCP - General 04/06/20 documented as of this encounter Additional Source Comments The information contained in this document represents components of the legal health record. It is not the complete legal health record.[facility]
--- OUTSIDE RECORDS SUMMARY | 2025-10-11 10:54 | XMS_ITS | Encounter Summary ---
Author Organization 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 It is not the complete legal health record.[facility]
--- OUTSIDE RECORDS SUMMARY | 2025-10-11 10:54 | XMS_ITS | Encounter Summary ---
Author Organization [facility] Address [address] [place] [address] Phone Care Team Providers Care Tooler Name Role Phone Pool Perez CADDY PACKER Primary Care Provider +1- [phone] Encounter Details Date Type Department Care Team (Late st Contact Info) Description 06/29/2020 Procedure Pass [facility] Admitting Dept Virtual Department [address] [place] [address] Social History Tobacco Use Types Packs/Day Years [...] on filedocumented in this encounter Care Teams Tooler Relationship Specialty Start Date End Date Pool Perez NP [address] [place] [address] PCP - General 04/06/20 documented as of this encounter Additional Source Comments The information contained in this document represents components of the legal health record. It is not the complete legal health record.[facility]
--- OUTSIDE RECORDS SUMMARY | 2025-10-11 10:54 | XMS_ITS | Encounter Summary ---
Author Organization [facility] Address [address] [place] [address] Phone Care Team Providers Care Architectural Engineering Teacher Name Role Phone Debbi Segal MD, MPH Primary Care Provider + Luke Gaitan Primary Care Provider Daija Banegas MD Primary Care Provider Pool Perez NP Primary Care Provider +1- [phone] Encounter Details Date Type Department Care Team (Late st Contact Info) Description 12/22/2017 Procedure Pass [facility], Ct Scan - [address] [address] Social History Tobacco Use Types Packs/Day Years [...] documented as of this encounter Care Teams Architectural Engineering Teacher Relationship Specialty Start Date End Date Debbi Segal MD, MPH [address] [place] [address] [email or web address] PCP - General 10/18/17 02/08/18 Luke Gaitan [address] [facility] [place] [address] PCP - General 02/09/18 03/14/19 Daija Banegas MD [address] [place] [address] [email or web address] PCP - General Family Medicine 03/15/19 09/24/19 Pool Perez NP [address] [place] [address] PCP - General 04/06/20 documented as of this encounter Additional Source Comments The information contained in this document represents components of the legal health record. It is not the complete legal health record.[facility]
[2025-10-11] MEDS: Furosemide 20 MG/2 ML VIAL IVPUSH (11:00)
[2025-10-11 11:15] LABS: Resp Syncy Virus RNA Qual PCR NEGATIVE (Negative); SARS COV2 PCR INHOUSE NEGATIVE (Negative)
--- NOTE | 2025-10-11 11:34 | PC.NURSE ---
Pt found up walking in room, naked. pt put back in bed, advised not to get up without assistance. pt not agreeable to plan. curtain opened, frequent checks by staff. yellow socks and fall star in place.
[2025-10-11] MEDS: iohexoL 350 MG/ML 100 ML INFUS..BTL IV (13:05)
[2025-10-11 16:09] LABS: VBG HCO3 27 mmol/L (22-26); VBG O2 % Saturation 78.0 %
[2025-10-11 16:09] LABS: Venous Blood Gas Refer to POC result
--- NOTE | 2025-10-11 16:11 | PHA.MEDREC ---
Pharmacy Consult ? Medication Reconciliation Pharmacy has completed the medication reconciliation. Utilized list from [facility].
--- NOTE | 2025-10-11 16:27 | PM.IMHP ---
History of Present Illness Date of Service: 10/11/25 Chief Complaint: Altered mental status 84-year-old male transferred from [facility] for evaluation of acute change in mental status, described by staff as increased weakness and lethargy over today. Baseline per facility and EMS is ambulatory, talkative, and able to participate in care; today, patient is non-verbal, not answering questions, and only responsive to painful stimuli. No recent medication changes reported by staff. No known recent infections, but patient is at increased risk due to advanced age, dementia, and residence in a prison facility. No history of trauma, seizure, or fever reported by staff. No known environmental exposures. Patient has a history of dementia, hypertension, and other chronic conditions. Patient's mental status cleared initially in the emergency room however after ambulation became what is described as obtunded and desatting. When examined in bed patient awake alert and able to answer questions Review of Systems Review of Systems: Denies chest pain Denies shortness of breath Denies nausea vomiting diarrhea Denies fever chills PMFSH Social History Unable to assess alcohol history related to: Unknown Smoked in Last 30 Days: No Use of substances other than those prescribed or required for medical reasons: Unknown Advance Directives: No Advance Directives Information Provided: Yes Meds Allergies Allergy/AdvReac Type Severity Reaction Status Date / Time naproxen (From ALEVE) Allergy Severe ANAPHYLAXIS Unverified 10/11/25 09:44 Active Medications: Current Medications Acetaminophen (Acetaminophen 325 Mg Tablet) 650 mg PO Q6H PRN PRN Reason: Pain, Mild 1-3,fever,headache Calcium Carbonate (Calcium Carbonate 750 Mg Tab.Chew) 750 mg PO Q4H PRN PRN Reason: Heartburn Enoxaparin Sodium (Enoxaparin Sodium 40 Mg/0.4 Ml Syringe) 40 mg SUBCUT Q24H MELVIN Piperacillin Sod/Tazobactam (Sod 3.375 gm/ Sodium Chloride) 50 mls @ 100 mls/hr IV Q6H MELVIN Magnesium Hydroxide (Milk Of Magnesia 30 Ml Oral.Susp) 30 ml PO DAILY PRN PRN Reason: Constipation Melatonin (Melatonin 3 Mg Tablet) 6 mg PO BEDTIME PRN PRN Reason: Insomnia Ondansetron HCl (Ondansetron Hcl 4 Mg/2 Ml Vial) 4 mg IVPUSH Q8H PRN PRN Reason: Nausea and Vomiting Sodium Chloride (0.9 % Sodium Chloride Flush 3 Ml Syringe) [facility] Medications ?Medication ?Instructions ?Recorded ?Confirmed ?Last Taken ?Type acetaminophen 325 mg tablet 1,000 mg PO DAILY 10/11/25 10/11/25 Unknown History albuterol sulfate 90 mcg/actuation 1 puff inhalation Q4H PRN SOB 10/11/25 10/11/25 Unknown History aerosol inhaler aspirin 81 mg tablet 81 mg PO DAILY 10/11/25 10/11/25 Unknown History calcium carbonate 500 mg PO DAILY 10/11/25 10/11/25 Unknown History carbidopa ER 25 mg-levodopa 100 mg 1 tab PO TID@0800,1400,199910/11/25 10/11/25 Unknown History tablet,extended release citalopram 10 mg tablet (Celexa) 30 mg PO DAILY 10/11/25 10/11/25 Unknown History galantamine 12 mg tablet 12 mg PO BID 10/11/25 10/11/25 Unknown History lamotrigine 100 mg tablet 75 mg PO DAILY@199910/11/25 10/11/25 Unknown History lidocaine 4 % topical patch 1 patch topical DAILY PRN Pain 10/11/25 10/11/25 Unknown History (Scale Score 1-3) lurasidone 20 mg tablet 20 mg PO DAILY@199910/11/25 10/11/25 Unknown History ondansetron HCl 4 mg tablet 4 mg PO Q6H PRN Nausea And Vomiting 10/11/25 10/11/25 Unknown History oxybutynin chloride 5 mg tablet 5 mg PO DAILY 10/11/25 10/11/25 Unknown History rasagiline 0.5 mg tablet 0.5 mg PO DAILY 10/11/25 10/11/25 Unknown History sennosides 8.6 mg-docusate sodium 2 tab-cap PO DAILY 10/11/25 10/11/25 Unknown History 50 mg tablet (Senna with Docusate Sodium) simvastatin 20 mg tablet 20 mg PO BEDTIME 10/11/25 10/11/25 Unknown History Physical Exam Vital Signs and Narrative: Vital Signs: Last Vital Signs Temp 98.6 F 10/11/25 12:00 Pulse 69 10/11/25 12:00 Resp 16 10/11/25 12:00 BP 105/80 10/11/25 12:00 Pulse Ox 95 10/11/25 12:42 O2 Del Method Nasal Cannula 10/11/25 12:42 O2 Flow Rate 3 10/11/25 12:42 BMI result Body Mass Index 23.9 Const: Other: Awake alert answering responsibly Resp: Other: Essentially clear to auscultation bilaterally no rales rhonchi or wheezes Cardio: Other: No S4; positive S1-S2; no S3 murmurs rubs or gallops GI: Other: Soft nontender nondistended normoactive bowel sounds Neuro: Other: Awake alert oriented x2 no acute distress. Motor is 5/5 all extremities sensation is intact cognition is baseline per chart Extrem: Other: No edema bilaterally Results Labs 10/11/25 09:55 10/11/25 09:55 Labs: Laboratory Results - last 24 hr 10/11/25 10/11/25 10/11/25 09:55 10:15 16:06 MCV 80.0 MCH 24.8 L MCHC 31.1 RDW 15.9 Plt Count 335 MPV 10.5 Immature Gran % (Auto) 0.3 Neut % (Auto) 76.5 H Lymph % (Auto) 11.6 L [place] % (Auto) 8.1 Eos % (Auto) 2.6 Baso % (Auto) 0.9 Lymph # (Auto) 1.2 [place] # (Auto) 0.9 Eos # (Auto) 0.3 Baso # (Auto) 0.1 Abs Immat Gran (auto) 0.03 Absolute Neuts (auto) 8.0 Absolute Nucleated RBC 0.000 Nucleated RBC % (auto) 0.0 PT 12.8 INR 1.0 VBG pH 7.42 VBG pCO2 42 VBG pO2 50 VBG HCO3 27 H VBG O2 Saturation 78.0 VBG Base Excess 3.2 Anion Gap 13 Estim Creat Clear Calc 61.2 Estimated GFR > 60 Random Glucose 102 Lactic Acid 0.8 Calcium 8.8 Magnesium 2.2 Total Bilirubin 0.5 AST 31 ALT < 6 Alkaline Phosphatase 90 Troponin I High Sens 6.6 NT-Pro-B Natriuret Pep 571.1 H Total Protein 7.0 Albumin 4.3 Urine Color Yellow Urine Appearance Clear Urine pH 6.5 Ur Specific [place] 1.015 Urine Protein Negative Urine Glucose (UA) Negative Urine Ketones Negative Urine Blood Negative Urine Nitrite Negative Ur Leukocyte Esterase Negative Influenza Type A (PCR) NEGATIVE Influenza Type B (PCR) NEGATIVE RSV RNA Qual (PCR) NEGATIVE SARS-CoV-2 RNA (RT-PCR) NEGATIVE Assessment and Plan (1) Altered mental status: Qualifiers: Altered mental status type: transient alteration of awareness Qualified Code(s): R40.4 - Transient alteration of awareness Status: Acute (2) Parkinson disease: Qualifiers: Dyskinesia presence: unspecified whether dyskinesia Fluctuating manifestations: unspecified whether manifestations fluctuate Qualified Code(s): G20.A1 - Parkinson's disease without dyskinesia, without mention of fluctuations Status: Acute (3) Bipolar 1 disorder: Status: Acute Plan 84-year-old male resident of [facility] presents for evaluation of acute change in mental status. Staff describes patient as usually ambulatory with walker but today he was very confused and nonambulatory. Patient presented to the emergency room was initially nonverbal however during the course of the day we was able to be walked to the bathroom. Again patient became lethargic and essentially unresponsive. This again was transient as he was awake during this exam and answering questions appropriately. Workup in ER significant only for a mildly elevated BNP of greater than 500. 1. Weakness/mental status changes -unclear etiology at this time -CTA of head and neck negative CTA of head negative -observe on telemetry to rule out dysrhythmia as the cause of mental status changes -no seizure history 2. Acute hypoxic respiratory failure -patient noted to desat into the 70s; corrected with nasal cannula -workup and exam unremarkable including respiratory panel. -empiric Zosyn at this time 3. Parkinson's disease -stable and well compensated per staff -continue outpatient therapies 4. Fever (low-grade) -empiric Zosyn -image abdomen -urine without active sediment Full code Lovenox Patient requires overnight stay to evaluate cause for transient unresponsiveness and weakness Quality Stroke Does the patient have a stroke diagnosis?: No VTE Prior VTE?: No VTE Risk Level:: Medical - moderate - high VTE Device Contraindication: Treatment Not Indicated VTE Drug Contraindication: N/A - Med Ordered
[2025-10-11] MEDS: 0.9 % Sodium Chloride Flush 3 ML SYRINGE IVFLUSH ×2 (16:52→20:15)
[2025-10-11] MEDS: Carbidopa/Levodopa CR 25/100 TABLET.ER 1 TAB PO (20:14)
[2025-10-12 03:47] VITALS: BP 109/71; PULSE 91; RESP 17; TEMP 36.2; O2SAT 96
--- NOTE | 2025-10-12 06:43 | PC.NURSE ---
vancomycin administration delayed because med was not available- pharmacy mix
[2025-10-12] MEDS: vancomycin HCL 1,000 MG, vancomycin HCL 750 MG in 0.9 % Sodium Chloride 500 ML 267.5 MG IV (06:47)
--- NOTE | 2025-10-12 07:33 | PHA.PROG ---
Admission Date/Time: October 11, 2025 15:47 Indication: Bacteremia Weight in k.1 kg Adjusted body weight in Kg: [place] body weight in Kg: Obesity Dosing Indication % IBW: Serum Creatinine - Last 168 Hours 10/11/25 09:55 Creatinine 0.93 Estimated CrCl and GFR - Last 168 Hours 10/11/25 09:55 Estim Creat Clear Calc 61.2 Estimated GFR > 60 Vancomycin Loading Dose: 1750 mg Current Vancomycin Dosing Regimen: 1500 mg Q24H Vancomycin Monitoring using AUC goal of 400 - 600 range with trough as surrogate marker: Predicted AUC 559 and trough 16.1 Date and Time for next Vancomycin Level to be drawn: 10/14 @0600 after the second dose Pharmacist Comments on Vancomycin Plan: Vancomycin dosing will take advantage of [employer] as a clinical decision support tool that uses Bayesian modeling to calculate individual patient's pharmacokinetic parameters and forecast the patient's drug concentration time course with the target goal AUC 24 range of 400 - 600 mg/L/hr.
[2025-10-12 07:35] LABS: MANUAL DIFF FLAG NO
[2025-10-12 07:37] LABS: Hematocrit 46.5 % (42.0-52.0); Hemoglobin 14.4 g/dl (14.0-18.0); Imm Gran Abs Auto 0.03 X10*3/uL (0.00-0.03); Imm Gran Pct Auto 0.3 % (0.0-0.4); Lymphocytes Absolute Auto 1.5 X10*3/uL (1.2-4.9); Mean Corpuscular HGB Conc 31.0 g/dl (31.0-36.0); Mean Corpuscular Hemoglobin 24.8 pg (27.0-33.0); Mean Corpuscular Volume 80.2 fL (80.0-98.0); NRBC Abs Auto 0.000 X10*3/uL (0.0-0.012); NRBC Pct Auto 0.0 /100WBC (0.0-0.2); Platelet Count 351 X10*3/uL (160-400); Red Blood Count 5.80 X10*6/uL (4.60-5.80); White Blood Count 10.7 X10*3/uL (4.8-10.8)
[2025-10-12 07:59] LABS: NT Pro B Type Natriuretic Pept 540.3 pg/mL (<300)
[2025-10-12 08:00] VITALS: BP 100/72; PULSE 90; RESP 20; TEMP 36.5; O2SAT 92
[2025-10-12 08:01] LABS: Alanine Aminotransferase < 6 U/L (0-40); Albumin Level 4.4 g/dL (3.5-5.0); Alkaline Phosphatase 89 U/L (39-117); Anion Gap 17 (12-20); Aspartate Amino Transferase 19 U/L (5-37); Blood Urea Nitrogen 16 mg/dL (9-16); Calcium 8.9 mg/dL (8.4-10.2); Carbon Dioxide 23 mmol/L (22-29); Chloride 107 mmol/L (96-108); Creatinine Clr Calc Pharmacy 57.5; Estimated Glomerular Filt Rate > 60; Potassium 3.8 mmol/L (3.3-5.1); Sodium 143 mmol/L (135-145); Total Protein 7.2 g/dL (6.5-8.0)
[2025-10-12] MEDS: 0.9 % Sodium Chloride Flush 3 ML SYRINGE IVFLUSH ×2 (09:01→20:09)
[2025-10-12] MEDS: Carbidopa/Levodopa CR 25/100 TABLET.ER 1 TAB PO ×3 (09:01→20:09)
[2025-10-12 10:57] LABS: Chlamydia pneumoniae PCR Not Detected (Not Detect.); Coronavirus 229E PCR Not Detected (Not Detect.); Coronavirus HKU1 PCR Not Detected (Not Detect.); Coronavirus NL63 PCR Not Detected (Not Detect.); Coronavirus OC43 PCR Not Detected (Not Detect.); RSV PCR Not Detected (Not Detect.); Rhino/Enterovirus PCR Not Detected (Not Detect.)
--- NOTE | 2025-10-12 11:01 | MHC.CM.PN ---
Addendum entered by Harmony Amos RN 10/12/25 11:59: DC CANCELLED D/T POSITIVE BC'S. Original Note: IMM 10/12/25 DELIVERED TO PT'S SON/HCP TREASURE SHEEHAN AT NUMBER ON FILE, TREASURE AGREEABLE TO PT'S DC BACK TO [facility] TODAY MD WILL MEDICALLY CLEAR PT, COPY OF IMM TO BE EMAILED TO [email or web address] PER REQUEST. DANIKA FOR BLS TRANSPORT AT 1:30PM.
[2025-10-12 11:25] LABS: Influenza A H1 PCR Not Detected (Not Detect.); Influenza A H1-2009 PCR Not Detected (Not Detect.); Influenza A H3 PCR Not Detected (Not Detect.); SARS-CoV-2 PCR Not Detected (Not Detect.)
--- NOTE | 2025-10-12 11:27 | PM.DS ---
DS: Providers Provider Date of admission: 10/11/25 15:47 Date of discharge: 10/12/25 Primary care physician: Unknown Physician DS: Diagnosis Discharge Diagnosis (1) Altered mental status: Status: Acute (2) Parkinson disease: Status: Acute (3) Bipolar 1 disorder: Status: Acute DS: Summary Hospital Course Hospital Course: 84-year-old male transferred from [facility] for evaluation of acute change in mental status, described by staff as increased weakness and lethargy over today. Baseline per facility and EMS is ambulatory, talkative, and able to participate in care; today, patient is non-verbal, not answering questions, and only responsive to painful stimuli. No recent medication changes reported by staff. No known recent infections, but patient is at increased risk due to advanced age, dementia, and residence in a halfway facility. No history of trauma, seizure, or fever reported by staff. No known environmental exposures. Patient has a history of dementia, hypertension, and other chronic conditions. Patient's mental status cleared initially in the emergency room however after ambulation became what is described as obtunded and desatting. When examined in bed patient awake alert and able to answer questions Hospital Course Patient admitted to telemetry. No acute issues overnight. Patient's mentation remained intact without issue. At this point in time he is medically acceptable for discharge back to [facility] and will complete a course of Augmentin for what appears to be pneumonitis on chest x-ray. He can resume all his meds as previously taken and further plans based on his clinical course and receiving physician Time Attestation Discharge Coordination Time (in mins): 35 Quality: Safe Use of Opioids Does Pt have an Active Cancer Diagnosis on the Problem List?: No Quality: Stroke Does the patient have a stroke diagnosis?: No Physical Exam Vital Signs: Vital Signs: Last Vital Signs Temp 97.7 F 10/12/25 08:00 Pulse 90 10/12/25 08:00 Resp 20 10/12/25 08:00 BP 100/72 10/12/25 08:00 Pulse Ox 92 10/12/25 08:00 O2 Del Method Nasal Cannula 10/12/25 08:00 O2 Flow Rate 2 10/12/25 08:00 BMI result Body Mass Index 23.8 Const: Other: Awake alert answering responsibly Resp: Other: Essentially clear to auscultation bilaterally no rales rhonchi or wheezes Cardio: Other: No S4; positive S1-S2; no S3 murmurs rubs or gallops GI: Other: Soft nontender nondistended normoactive bowel sounds Neuro: Other: Awake alert oriented x2 no acute distress. Motor is 5/5 all extremities sensation is intact cognition is baseline per chart Extrem: Other: No edema bilaterally DS: Data Data Completed and Pending Labs on day of discharge: Laboratory Results - last 24 hr 10/11/25 10/11/25 10/12/25 16:06 16:59 06:42 WBC 10.7 RBC 5.80 Hgb 14.4 Hct 46.5 MCV 80.2 MCH 24.8 L MCHC 31.0 RDW 15.8 Plt Count 351 MPV 11.3 Immature Gran % (Auto) 0.3 Neut % (Auto) 74.5 H Lymph % (Auto) 13.8 L [place] % (Auto) 8.9 Eos % (Auto) 1.8 Baso % (Auto) 0.7 Lymph # (Auto) 1.5 [place] # (Auto) 1.0 Eos # (Auto) 0.2 Baso # (Auto) 0.1 Abs Immat Gran (auto) 0.03 Absolute Neuts (auto) 8.0 Absolute Nucleated RBC 0.000 Nucleated RBC % (auto) 0.0 VBG pH 7.42 VBG pCO2 42 VBG pO2 50 VBG HCO3 27 H VBG O2 Saturation 78.0 VBG Base Excess 3.2 Sodium 143 Potassium 3.8 Chloride 107 Carbon Dioxide 23 Anion Gap 17 BUN 16 Creatinine 0.99 Estim Creat Clear Calc 57.5 Estimated GFR > 60 Random Glucose 91 Calcium 8.9 Total Bilirubin 0.5 AST 19 ALT < 6 Alkaline Phosphatase 89 NT-Pro-B Natriuret Pep 540.3 H Total Protein 7.2 Albumin 4.4 Respiratory Panel Harman See Note Adenovirus (Rapid PCR) Not Detected B.pert (TEM-PCR) Not Detected B.parapertussis DNA PCR Not Detected C. pneumoniae DNA (PCR) Not Detected Coronavirus OC43 (PCR) Not Detected Coronavirus HKU1 (PCR) Not Detected Coronavirus 229E (PCR) Not Detected Coronavirus NL63 (PCR) Not Detected Human Metapneumovir PCR Not Detected Influenza A (RT-PCR) Not Detected Influenza A (H1) PCR Not Detected Influ A (H1/09) PCR Not Detected Influenza A (H3) PCR Not Detected Influenza B (RT-PCR) Not Detected M. pneumoniae (PCR) Not Detected Parainfluenza 1 (PCR) Not Detected Parainfluenza 2 (PCR) Not Detected Parainfluenza 3 (PCR) Not Detected Parainfluenza 4 (PCR) Not Detected RSV (PCR) Not Detected Entero/Rhino (PCR) Not Detected SARS-CoV-2 RNA (RT-PCR) Not Detected Preliminary micro results at discharge 10/11/25 09:55 Blood Culture - Preliminary Blood - Venous Prelim: GPC Gram Stain only Discharge Plan Discharge Anticipated Discharge Date/Time: 10/12/25 11:22 Patient Disposition: Xfer LTC Discharge Diagnosis: Acute mental status changes Referrals: Andria Le [Outside] - 1 Week Referral Note: RESUMPTION OF LTC Physician,Unknown J [Primary Care Provider, Medical] - 1 Week Discharge Medications: New amoxicillin-pot clavulanate 875-125 mg tablet 1 tab PO BID Qty: 14 0RF Continued acetaminophen 325 mg Tablet 1,000 mg PO DAILY lidocaine 4 % Adhesive Patch,Medicated 1 patch TOPICAL DAILY PRN (Reason: Pain (Scale Score 1-3)) carbidopa-levodopa 25-100 mg tablet extended release 1 tab PO TID@0800,1400,2000 citalopram [Celexa] 10 mg Tablet 30 mg PO DAILY galantamine 12 mg tablet 12 mg PO BID ondansetron HCl 4 mg tablet 4 mg PO Q6H PRN (Reason: Nausea And Vomiting) sennosides-docusate sodium [Senna with Docusate Sodium] 8.6-50 mg Tablet 2 tab-cap PO DAILY calcium carbonate 500 mg calcium (1,250 mg) Tablet 500 mg PO DAILY simvastatin 20 mg tablet 20 mg PO BEDTIME aspirin 81 mg Tablet 81 mg PO DAILY albuterol sulfate 90 mcg/actuation HFA aerosol inhaler 1 puff inhalation Q4H PRN (Reason: SOB) oxybutynin chloride 5 mg tablet 5 mg PO DAILY lamotrigine 100 mg tablet 75 mg PO DAILY@1999 rasagiline 0.5 mg tablet 0.5 mg PO DAILY lurasidone 20 mg tablet 20 mg PO DAILY@1999 Discharge Orders: Discharge Order (Routine); Ordered 10/12/25 Ordered By: Eitan Esquivel Diet: Advance to usual diet Activity on Discharge: As tolerated Stand Alone Forms: Patient Portal Discharge page Print Language: Nigerien Care Plan Goals: Augmentin was added to your regimen take twice daily until complete Health Concerns: Resume all medicines as taken prior to hospitalization Plan of Treatment: As per receiving facility Assessment: See discharge summary
[2025-10-12 12:00] VITALS: BP 110/72; PULSE 84; RESP 18; TEMP 36.4; O2SAT 92
[2025-10-12 16:00] VITALS: BP 126/76; PULSE 88; RESP 16; TEMP 36.5; O2SAT 96
[2025-10-12 19:06] VITALS: BP 120/59; PULSE 97; RESP 17; TEMP 36.7; O2SAT 95
[2025-10-12 22:51] VITALS: BP 114/67; PULSE 99; RESP 18; TEMP 36.7; O2SAT 95
[2025-10-13 07:13] VITALS: BP 118/73; PULSE 100; RESP 16; TEMP 36.6; O2SAT 95
[2025-10-13 07:21] LABS: Creatinine Clr Calc Pharmacy 53.2; Estimated Glomerular Filt Rate > 60
--- NOTE | 2025-10-13 07:31 | P.PNIM_ITS ---
Subjective Subjective Date of Service: 10/13/25 Physical Exam 2 Vital Signs: Vital Signs: Last Vital Signs Temp 97.9 F 10/13/25 07:13 Pulse 100 10/13/25 07:13 Resp 16 10/13/25 07:13 BP 118/73 10/13/25 07:13 Pulse Ox 95 10/13/25 07:13 O2 Del Method Nasal Cannula 10/13/25 07:13 O2 Flow Rate 2 10/13/25 07:13 BMI result Body Mass Index 23.8 Objective Data Active Medications Acetaminophen (Acetaminophen 325 Mg Tablet) 650 mg PO Q6H PRN PRN Reason: Pain, Mild 1-3,fever,headache Aspirin (Aspirin 81 Mg Tab.Chew) 81 mg PO DAILY [facility] Last Admin: 10/12/25 09:02 Dose: 81 mg Documented By: HORACIO Calcium Carbonate (Calcium Carbonate 750 Mg Tab.Chew) 750 mg PO Q4H PRN PRN Reason: Heartburn Carbidopa/Levodopa (Carbidopa/Levodopa Cr 25/100 Tablet.Er) 1 tab PO TID@0800,1400,1999 [facility] Last Admin: 10/12/25 20:09 Dose: 1 tab Documented By: DONTAE Enoxaparin Sodium (Enoxaparin Sodium 40 Mg/0.4 Ml Syringe) 40 mg SUBCUT Q24H [facility] Last Admin: 10/12/25 18:31 Dose: 40 mg Documented By: HORACIO Escitalopram Oxalate (Escitalopram Oxalate 10 Mg Tablet) 15 mg PO DAILY [facility] Last Admin: 10/12/25 09:02 Dose: 15 mg Documented By: HORACIO Galantamine Hydrobromide (Galantamine Hbr 4 Mg Tablet) 12 mg PO BID [facility] Last Admin: 10/12/25 20:09 Dose: 12 mg Documented By: DONTAE Piperacillin Sod/Tazobactam (Sod 3.375 gm/ Sodium Chloride) 50 mls @ 100 mls/hr IV Q6H [facility] Last Admin: 10/13/25 06:55 Dose: 100 mls/hr Documented By: DONTAE Vancomycin HCl 1,500 mg/ (Sodium Chloride) 500 mls @ 333.333 mls/hr IV Q24H [facility] Lamotrigine (Lamotrigine 25 Mg Tablet) 75 mg PO DAILY@1999 [facility] Last Admin: 10/12/25 20:09 Dose: 75 mg Documented By: DONTAE Lurasidone HCl (Lurasidone Hcl 20 Mg Tablet) 20 mg PO DAILY@1999 [facility] Last Admin: 10/12/25 20:09 Dose: 20 mg Documented By: DONTAE Magnesium Hydroxide (Milk Of Magnesia 30 Ml Oral.Susp) 30 ml PO DAILY PRN PRN Reason: Constipation Melatonin (Melatonin 3 Mg Tablet) 6 mg PO BEDTIME PRN PRN Reason: Insomnia Last Admin: 10/12/25 20:09 Dose: 6 mg Documented By: DONTAE Ondansetron HCl (Ondansetron Hcl 4 Mg/2 Ml Vial) 4 mg IVPUSH Q8H PRN PRN Reason: Nausea and Vomiting Oxybutynin Chloride (Oxybutynin Chloride 5 Mg Tablet) 5 mg PO DAILY [facility] Last Admin: 10/12/25 09:01 Dose: 5 mg Documented By: HORACIO Pharmacy Consult (Consult Rx Vancomycin Dosing) 1 each MISCELLANE DAILY PRN PRN Reason: Consult order Sodium Chloride (0.9 % Sodium Chloride Flush 3 Ml Syringe) 3 ml IVFLUSH QSHIFT [facility] Last Admin: 10/12/25 20:09 Dose: 3 ml Documented By: DONTAE Labs 10/12/25 06:42 10/13/25 06:29 Labs: Laboratory Results - last 24 hr 10/11/25 10/12/25 10/13/25 16:59 06:42 06:29 MCV 80.2 MCH 24.8 L MCHC 31.0 RDW 15.8 Plt Count 351 MPV 11.3 Immature Gran % (Auto) 0.3 Neut % (Auto) 74.5 H Lymph % (Auto) 13.8 L [place] % (Auto) 8.9 Eos % (Auto) 1.8 Baso % (Auto) 0.7 Lymph # (Auto) 1.5 [place] # (Auto) 1.0 Eos # (Auto) 0.2 Baso # (Auto) 0.1 Abs Immat Gran (auto) 0.03 Absolute Neuts (auto) 8.0 Absolute Nucleated RBC 0.000 Nucleated RBC % (auto) 0.0 Anion Gap 17 Estim Creat Clear Calc 57.5 53.2 Estimated GFR > 60 > 60 Random Glucose 91 Calcium 8.9 Total Bilirubin 0.5 AST 19 ALT < 6 Alkaline Phosphatase 89 NT-Pro-B Natriuret Pep 540.3 H Total Protein 7.2 Albumin 4.4 Respiratory Panel Harman See Note Adenovirus (Rapid PCR) Not Detected B.pert (TEM-PCR) Not Detected B.parapertussis DNA PCR Not Detected C. pneumoniae DNA (PCR) Not Detected Coronavirus OC43 (PCR) Not Detected Coronavirus HKU1 (PCR) Not Detected Coronavirus 229E (PCR) Not Detected Coronavirus NL63 (PCR) Not Detected Human Metapneumovir PCR Not Detected Influenza A (RT-PCR) Not Detected Influenza A (H1) PCR Not Detected Influ A (H1/09) PCR Not Detected Influenza A (H3) PCR Not Detected Influenza B (RT-PCR) Not Detected M. pneumoniae (PCR) Not Detected Parainfluenza 1 (PCR) Not Detected Parainfluenza 2 (PCR) Not Detected Parainfluenza 3 (PCR) Not Detected Parainfluenza 4 (PCR) Not Detected RSV (PCR) Not Detected Entero/Rhino (PCR) Not Detected SARS-CoV-2 RNA (RT-PCR) Not Detected Microbiology Microbiology Results: Microbiology 10/11/25 09:55 Blood Culture - Preliminary Blood - Venous Prelim: GPC Gram Stain only 10/11/25 10:27 Blood Culture - Preliminary Blood - Venous No growth after 24 hours. Quality Stroke Does the patient have a stroke diagnosis?: No VTE Prior VTE?: No VTE Risk Level:: Medical - moderate - high VTE Device Contraindication: Treatment Not Indicated VTE Drug Contraindication: N/A - Med Ordered
[2025-10-13] MEDS: Carbidopa/Levodopa CR 25/100 TABLET.ER 1 TAB PO ×2 (08:09→14:15)
[2025-10-13 11:12] VITALS: BP 100/67; PULSE 95; RESP 16; TEMP 36.5; O2SAT 95
--- NOTE | 2025-10-13 13:49 | PM.DS ---
DS: Providers Provider Date of admission: 10/11/25 15:47 Date of discharge: 10/13/25 Primary care physician: DILIA QUIÑONEZ Consults: 10/13/25 08:58 Consult to Infectious Diseases Routine Consulting Provider: [facility] Reason for consultation: 1/2 +GPC, real vs contamination DS: Diagnosis Discharge Diagnosis (1) Altered mental status: Status: Acute (2) Parkinson disease: Status: Acute (3) Bipolar 1 disorder: Status: Acute DS: Summary Hospital Course Hospital Course: 84-year-old male transferred from [facility] for evaluation of acute change in mental status, described by staff as increased weakness and lethargy over today. Baseline per facility and EMS is ambulatory, talkative, and able to participate in care; today, patient is non-verbal, not answering questions, and only responsive to painful stimuli. No recent medication changes reported by staff. No known recent infections, but patient is at increased risk due to advanced age, dementia, and residence in a prison facility. No history of trauma, seizure, or fever reported by staff. No known environmental exposures. Patient has a history of dementia, hypertension, and other chronic conditions. Patient's mental status cleared initially in the emergency room however after ambulation became what is described as obtunded and desatting. When examined in bed patient awake alert and able to answer questions Hospital Course Patient admitted to telemetry. No acute issues overnight. Patient's mentation remained intact without issue. At this point in time he is medically acceptable for discharge back to [facility] and will complete a course of Augmentin for what appears to be pneumonitis on chest x-ray. He can resume all his meds as previously taken and further plans based on his clinical course and receiving physician. BC drawn POA was deemed a contaminant , hence DC proceeded Time Attestation Discharge Coordination Time (in mins): 56 Quality: Safe Use of Opioids Does Pt have an Active Cancer Diagnosis on the Problem List?: No Quality: Stroke Does the patient have a stroke diagnosis?: No Physical Exam Vital Signs: Vital Signs: Last Vital Signs Temp 97.7 F 10/13/25 11:12 Pulse 95 10/13/25 11:12 Resp 16 10/13/25 11:12 BP 100/67 10/13/25 11:12 Pulse Ox 95 10/13/25 11:12 O2 Del Method Nasal Cannula 10/13/25 11:12 O2 Flow Rate 2 10/13/25 11:12 BMI result Body Mass Index 23.8 DS: Data Data Completed and Pending Labs on day of discharge: Laboratory Results - last 24 hr 10/13/25 06:29 Creatinine 1.07 Estim Creat Clear Calc 53.2 Estimated GFR > 60 Preliminary micro results at discharge 10/11/25 10:27 Blood Culture - Preliminary Blood - Venous No growth after 48 hours. Discharge Plan Discharge Anticipated Discharge Date/Time: 10/12/25 11:22 Patient Disposition: Xfer LTC Discharge Diagnosis: Acute mental status changes Referrals: [facility] [Outside] - 1 Week Referral Note: RESUMPTION OF LTC Physician,Darryn J [Physician, Medical] - 1 Week Discharge Medications: New amoxicillin-pot clavulanate 875-125 mg tablet 1 tab PO BID Qty: 14 0RF Continued acetaminophen 325 mg Tablet 1,000 mg PO DAILY lidocaine 4 % Adhesive Patch,Medicated 1 patch TOPICAL DAILY PRN (Reason: Pain (Scale Score 1-3)) carbidopa-levodopa 25-100 mg tablet extended release 1 tab PO TID@0800,1400,1999 citalopram [Celexa] 10 mg Tablet 30 mg PO DAILY galantamine 12 mg tablet 12 mg PO BID ondansetron HCl 4 mg tablet 4 mg PO Q6H PRN (Reason: Nausea And Vomiting) sennosides-docusate sodium [Senna with Docusate Sodium] 8.6-50 mg Tablet 2 tab-cap PO DAILY calcium carbonate 500 mg calcium (1,250 mg) Tablet 500 mg PO DAILY simvastatin 20 mg tablet 20 mg PO BEDTIME aspirin 81 mg Tablet 81 mg PO DAILY albuterol sulfate 90 mcg/actuation HFA aerosol inhaler 1 puff inhalation Q4H PRN (Reason: SOB) oxybutynin chloride 5 mg tablet 5 mg PO DAILY lamotrigine 100 mg tablet 75 mg PO DAILY@1999 rasagiline 0.5 mg tablet 0.5 mg PO DAILY lurasidone 20 mg tablet 20 mg PO DAILY@1999 Discharge Orders: Discharge Order (Routine); Ordered 10/13/25 Ordered By: Aleida Potter Diet: Advance to usual diet Activity on Discharge: As tolerated Stand Alone Forms: Patient Portal Discharge page Print Language: Citizen Of [place] Care Plan Goals: Augmentin was added to your regimen take twice daily until complete Health Concerns: Resume all medicines as taken prior to hospitalization Plan of Treatment: As per receiving facility Assessment: See discharge summary
--- NOTE | 2025-10-13 14:08 | MHC.CM.PN ---
Patient has been medically cleared for dc to LTC today. Patient will return to LTC @ [facility] today at 5PM, via [facility]. CM attempted to speak with HCP/Daniel @ [phone] but he was unavailable.
[2025-10-13 14:59] VITALS: BP 84/68; PULSE 95; RESP 16; TEMP 36.8; O2SAT 93
--- NOTE | 2025-10-13 15:10 | PC.NURSE ---
At 15:10pm Patient BP 84/68 manually and C/O of headache ,no chest pain, no dizziness, notified MD. MD verbalized order and given Normal saline 5ooml bolus. Order orthostatic . Afer fluid bolus BP 113/67 orthostatic normal see chart.
[2025-10-13 16:21] VITALS: BP 98/66; PULSE 125
[2025-10-13 16:24] VITALS: BP 101/61; PULSE 123
[2025-10-13 16:25] VITALS: BP 105/55; BP 113/67; PULSE 125; PULSE 79
--- NOTE | 2025-10-13 21:38 | W.PM.IDCN ---
History of Present Illness Data of Consult Service Date: 10/13/25 Requesting physician: Aleida Potter Primary Care Provider: DILIA QUIÑONEZ Reason for consult: bacteremia,1/2 gram positive cocci He presents with weakness and fatigue/ He also has encephalopathy. He has no fever or chills. Review of Systems Review of Systems: Yes all other systems are reviewed and are negative PMFSH Family History Family history: reviewed and not pertinent Social History Social History Household Members: Unknown / Unable to assess Housing: Unknown / Unable to assess Patient Tobacco Use Status: Former Tobacco user Meds Allergies Allergy/AdvReac Type Severity Reaction Status Date / Time naproxen (From [facility]) Allergy Severe ANAPHYLAXIS Unverified 10/11/25 09:44 Home Medications ?Medication ?Instructions ?Recorded ?Confirmed ?Last Taken ?Type acetaminophen 325 mg tablet 1,000 mg PO DAILY 10/11/25 10/11/25 Unknown History albuterol sulfate 90 mcg/actuation 1 puff inhalation Q4H PRN SOB 10/11/25 10/11/25 Unknown History aerosol inhaler aspirin 81 mg tablet 81 mg PO DAILY 10/11/25 10/11/25 Unknown History calcium carbonate 500 mg PO DAILY 10/11/25 10/11/25 Unknown History carbidopa ER 25 mg-levodopa 100 mg 1 tab PO TID@0800,1400,199910/11/25 10/11/25 Unknown History tablet,extended release citalopram 10 mg tablet (Celexa) 30 mg PO DAILY 10/11/25 10/11/25 Unknown History galantamine 12 mg tablet 12 mg PO BID 10/11/25 10/11/25 Unknown History lamotrigine 100 mg tablet 75 mg PO DAILY@199910/11/25 10/11/25 Unknown History lidocaine 4 % topical patch 1 patch topical DAILY PRN Pain 10/11/25 10/11/25 Unknown History (Scale Score 1-3) lurasidone 20 mg tablet 20 mg PO DAILY@199910/11/25 10/11/25 Unknown History ondansetron HCl 4 mg tablet 4 mg PO Q6H PRN Nausea And Vomiting 10/11/25 10/11/25 Unknown History oxybutynin chloride 5 mg tablet 5 mg PO DAILY 10/11/25 10/11/25 Unknown History rasagiline 0.5 mg tablet 0.5 mg PO DAILY 10/11/25 10/11/25 Unknown History sennosides 8.6 mg-docusate sodium 2 tab-cap PO DAILY 10/11/25 10/11/25 Unknown History 50 mg tablet (Senna with Docusate Sodium) simvastatin 20 mg tablet 20 mg PO BEDTIME 10/11/25 10/11/25 Unknown History Physical Exam Vital Signs: Vital Signs: Last Vital Signs Temp 98.3 F 10/13/25 14:59 Pulse 79 10/13/25 16:25 Resp 16 10/13/25 14:59 BP 113/67 10/13/25 16:25 Pulse Ox 93 10/13/25 14:59 O2 Del Method Nasal Cannula 10/13/25 14:59 O2 Flow Rate 2 10/13/25 14:59 BMI result Body Mass Index 23.8 Psych: Other: confused Results Labs 10/12/25 06:42 10/13/25 06:29 Labs: BMP 10/13/25 06:29 Creatinine 1.07 Microbiology Microbiology Results: Microbiology 10/11/25 10:27 Blood - Venous Blood Culture - Preliminary No growth after 48 hours. 10/11/25 09:55 Blood - Venous Blood Culture - Final Coag negative Staphylococcus Assessment and Plan (1) Parkinson disease: Qualifiers: Dyskinesia presence: unspecified whether dyskinesia Fluctuating manifestations: unspecified whether manifestations fluctuate Qualified Code(s): G20.A1 - Parkinson's disease without dyskinesia, without mention of fluctuations Status: Acute (2) Altered mental status: Qualifiers: Altered mental status type: transient alteration of awareness Qualified Code(s): R40.4 - Transient alteration of awareness Status: Acute Plan He has gram positive cocci which is coagulase negative staph in blood Stop antibiotics,stop Vancomycin Follow up Parkinsons treatment
== END 2025-10-13 18:34 | DRG 205 ==
LOC: HO.ED 14:57 → HO.EDOVER 15:53 → HO.IMC 16:18
PROVIDERS: Internal Medicine; Physician Assistant; Admitting Provider Hospitalist; Emergency Provider Emergency Medicine; PCP Emergency Medicine; Visit Provider Student in an Organized Health Care Education/Training Program
DX: J98.4 Other disorders of lung (principal); J96.01 Acute respiratory failure with hypoxia; G93.40 Encephalopathy, unspecified; G20.A1 Parkinson's disease without dyskinesia, without mention of fluctuations; F31.9 Bipolar disorder, unspecified; F02.80 Dementia in other diseases classified elsewhere, unspecified severity, without behavioral disturbance, psychotic disturbance, mood disturbance, and anxiety; Z20.822 Contact with and (suspected) exposure to COVID-19; Z79.82 Long term (current) use of aspirin; Z79.899 Other long term (current) drug therapy
CPT/HCPCS: 36415; 70450; 71045; 71275; 74176; 80053; 81003; 82565; 82803; 83605; 83735; 83880; 84484; 85025; 85610; 87040; 87147; 87205; 87633; 87637; 93005; 99285; J0696; J1650; J1938; J2543; J3374; Q9967

== ENCOUNTER → 2025-10-11 09:26 | Outpatient (BNV) | payer MEDICARE, MEDICAID, SELFPAY | PROVIDERS: Emergency Provider Emergency Medicine; Visit Provider Radiology Diagnostic Radiology | DX: K80.20 Calculus of gallbladder without cholecystitis without obstruction (principal); K57.30 Diverticulosis of large intestine without perforation or abscess without bleeding; R91.1 Solitary pulmonary nodule | CPT/HCPCS: 71275; 74176 ==

== ENCOUNTER → 2025-10-11 09:26 | Outpatient (BNV) | payer MEDICARE, MEDICAID, SELFPAY | PROVIDERS: Admitting Provider Hospitalist; Emergency Provider Emergency Medicine; PCP Emergency Medicine; Visit Provider Internal Medicine | DX: I48.91 Unspecified atrial fibrillation (principal) | CPT/HCPCS: 93010 ==

== ENCOUNTER → 2025-10-11 15:47 | Outpatient (BNV) | payer MEDICARE, MEDICAID, SELFPAY | PROVIDERS: Admitting Provider Hospitalist; Emergency Provider Emergency Medicine; Visit Provider Hospitalist | DX: R40.4 Transient alteration of awareness (principal); G20.A1 Parkinson's disease without dyskinesia, without mention of fluctuations; F31.9 Bipolar disorder, unspecified | CPT/HCPCS: 99222; 99239; 99499 ==

== ENCOUNTER → 2025-10-11 15:47 | Outpatient (BNV) | payer MEDICARE, MEDICAID, SELFPAY | PROVIDERS: Admitting Provider Hospitalist; Emergency Provider Emergency Medicine; PCP Emergency Medicine; Visit Provider Internal Medicine | DX: G20.A1 Parkinson's disease without dyskinesia, without mention of fluctuations (principal); R40.4 Transient alteration of awareness | CPT/HCPCS: 99222 ==